=== PATIENT | female | born 1975 ===

== ENCOUNTER 2016-05-09 09:54 | Inpatient (IN) | payer OTHER ==
[2016-03-05 21:11] VITALS: BMI 24.7
--- NOTE | 2016-05-09 11:04 | CP.PCM.HP ---
History of Present Illness - History of Present Illness History of Present Illness: 40yo female with h/o menorrhagia which had been unresponsive to endometrial ablation and also associated with a chronic pelvic pain reports here today for a scheduled ANEL with bilateral salpingectomy and all nenesssary procedures. The risks and benefits of the procedure has been discussed. Her questions has been answered. She has obtained a consent. Present on Admission - Present on Admission Any Indicators Present on Admission: No Review of Systems - EENT Nose/Mouth/Throat: As Per HPI - Breasts Breasts: As Per HPI - Cardiovascular Cardiovascular: As Per HPI - Reproductive: Female Reproductive:Female: Dyspareunia Past Patient History - Infectious Disease Hx of Infectious Diseases: None - Past Medical History & Family History Past Medical History?: Yes - Past Social History Smoking Status: Never Smoked - CARDIAC Hx Cardiac Disorders: Yes Hx Angina: Yes - PULMONARY Hx Respiratory Disorders: No - NEUROLOGICAL Hx Neurological Disorder: No - HEENT Hx HEENT Problems: Yes Hx Epistaxis: Yes Hx Sinusitis: Yes - RENAL Hx Chronic Kidney Disease: No - ENDOCRINE/METABOLIC Hx Endocrine Disorders: No - HEMATOLOGICAL/ONCOLOGICAL Hx Blood Disorders: Yes Hx Anemia: Yes - INTEGUMENTARY Hx Dermatological Problems: No - MUSCULOSKELETAL/RHEUMATOLOGICAL Hx Musculoskeletal Disorders: Yes Hx Herniated Disk: Yes (LUMBAR) Other/Comment: SCOLIOSIS - GASTROINTESTINAL Hx Gastrointestinal Disorders: Yes Hx Gastritis: Yes Hx Gastroesophageal Reflux: Yes - GENITOURINARY/GYNECOLOGICAL Hx Genitourinary Disorders: No Hx Reproductive Disorders: Yes (FIBROID UTERUS) Other/Comment: EXCESSIVE MENSTRUATION : 2 Para: 2 Termination of : 0 - PSYCHIATRIC Hx Psychophysiologic Disorder: No Hx Substance Use: No - SURGICAL HISTORY Hx Surgeries: Yes Hx Cardiac Catheterization: Yes (2 YEARS AGO) Hx Dilation and Curettage: Yes (& Hysteroscopy ) Hx Orthopedic Surgery: Yes (Left knee tendon) Hx Tubal Ligation: Yes Other/Comment: Laparoscopy, Vaginal Myomectomy, nasal polyp surgery last thursday - ANESTHESIA Hx Anesthesia: Yes Hx Anesthesia Reactions: No Hx Malignant Hyperthermia: No Meds Allergies/Adverse Reactions: Allergies Allergy/AdvReac Type Severity Reaction Status Date / Time clarithromycin Allergy Severe SHORTNESS Verified 05/09/16 10:14 OF BREATH iodine Allergy Severe SHORTNESS Verified 05/09/16 10:14 OF BREATH morphine Allergy Severe SHORTNESS Verified 05/09/16 10:14 OF BREATH oxycodone HCl [From Percocet] Allergy Severe RASH Verified 05/09/16 10:14 Penicillins Allergy Severe RASH Verified 05/09/16 10:14 all antibiotics Allergy SHORTNESS Uncoded 05/09/16 10:14 OF BREATH Results - Vital Signs Recent Vital Signs: Last Vital Signs Temp 97.6 F 05/09/16 10:17 Pulse 65 05/09/16 10:17 Resp 20 05/09/16 10:17 BP 129/79 05/09/16 10:17 Pulse Ox 100 05/09/16 10:17 Assessment & Plan - Assessment and Plan (Free Text) Assessment: 40yo female with chronic Pelvic pain Endometriosis For 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 This is because of the severity of symptoms shown, intensity of services needed, and/or the medical risk in this patient being treated as an outpatient. - InPatient: Physician Admission Certification:: vu newby - . Bed Request Type: FAN BLADE TRUER Admitting Physician: Vu Newby
[2016-05-09] MEDS ORDERED: Lactated Ringer's 1,000 ML IV ONE ×2 (12:05→12:45)
[2016-05-09] MEDS ORDERED: Propofol 10 mg/ml Inj (20 ML) ONE (12:19)
[2016-05-09] MEDS ORDERED: Midazolam 2 MG/2 ML VIAL ONE (12:19)
[2016-05-09] MEDS ORDERED: Rocuronium 10 mg/ml (5 ml) ONE (12:19)
[2016-05-09] MEDS ORDERED: Neostigmine Methylsulfate 3mg/3ml Syringe IV ONE (12:19)
[2016-05-09] MEDS ORDERED: Morphine 4 MG/ML VIAL ONE (12:19)
[2016-05-09] MEDS ORDERED: Bupivacaine HCl 0.25% PF (10 ml) Inj ONE (13:20)
[2016-05-09] MEDS ORDERED: BUPIVACAINE 0.125%/0.9% NACL 600 ML IJ ONE (14:00)
[2016-05-09] MEDS ORDERED: Morphine Monoject Barrel PCA 1mg/ml IV PRN (14:07)
[2016-05-09] MEDS ORDERED: DiphenhydrAMINE 50 mg/ml Inj IVP PRN (14:12)
[2016-05-09] MEDS: HYDROmorphone 0.5 mg/0.5 ml ISec IVP PRN ×4 (14:15→16:00)
[2016-05-09] MEDS ORDERED: HYDROmorphone 1 mg/ml ISec ONE ×2 (14:30→15:16)
--- NOTE | 2016-05-09 14:39 | PCM.SURG1 ---
Surgeon's Initial Post Op Note - Surgeon's Notes Surgeon: Dr Newby Clinical Outcomes Manager: Dr Carmona Anesthesia Administered By: Sixto Solorzano Supervised by Dr Borrero Pre-Operative Diagnosis: 41yo female with chronic pelvic pain, irregular menstrual bleeding. Operative Findings: Normal sized anterverted uterus , with normal appearing ovaries bilaterally. There was evdence of tubal ligation on either sidethere were some omental adhesions to the posterior wall of the uterus and to the left adnexa. IV Fluids- 1700mls. EBL- 100mls. Urine output- 200mls of clear urine Post-Operative Diagnosis: Same as preop diagnosis Operation Performed: Total Abdominal Hysterectomy and bilateral Salpingectomy Specimen/Specimens Removed: Uterus with Cervix Estimated Blood Loss: EBL {In ML}: 100 Blood Products Given: N/A Date of Surgery/Procedure: 05/09/16 Time of Surgery/Procedure: 14:42
[2016-05-09] MEDS: Clindamycin 600mg/50ml D5W 50 ML IVPB SCH (21:33)
[2016-05-09] MEDS: Lactated Ringer's 1,000 ML IV SCH (22:30)
[2016-05-10] MEDS: Lactated Ringer's 1,000 ML IV SCH ×3 (01:30→10:18)
[2016-05-10] MEDS: Clindamycin 600mg/50ml D5W 50 ML IVPB SCH ×2 (06:33→12:40)
[2016-05-10 07:20] LABS: HEMATOCRIT 31.1 % (34.0-47.0); MEAN CELL VOLUME 81.9 fL (81.0-99.0); MEAN CORPUSCULAR HEMOGLOBIN 26.5 pg (27.0-31.0); MEAN CORPUSCULAR HGB CONC 32.3 g/dL (33.0-37.0); MEAN PLATELET VOLUME 7.9 fL (7.2-11.7); RED CELL DISTRIBUTION WIDTH 13.5 % (11.5-14.5)
[2016-05-10 07:24] LABS: CHLORIDE 95 mmol/L (98-107); POTASSIUM 4.2 mmol/L (3.6-5.2); SODIUM 134 mmol/L (132-148)
[2016-05-10 07:27] LABS: BLOOD UREA NITROGEN 8 mg/dL (7-17); CARBON DIOXIDE 28 mmol/L (22-30); GFR AFRICAN-AMERICAN > 60
[2016-05-10 07:28] LABS: CALCIUM 8.3 mg/dl (8.6-10.4); GLUCOSE,RANDOM 102 mg/dL (65-105)
[2016-05-10] MEDS ORDERED: Pneumococcal 23-Valent Vaccine IM ONE (10:00)
[2016-05-10] MEDS ORDERED: Influenza Virus Vaccine 45 mcg/0.5 ml Syr IM ONE (10:00)
[2016-05-10] MEDS: Enoxaparin 30 mg Syringe SC SCH (13:47)
--- NOTE | 2016-05-10 22:59 | CP.PCM.PN ---
Subjective - Date & Time of Evaluation Date of Evaluation: 05/10/16 Time of Evaluation: 10:30 - Subjective Subjective: 41yo female s/p ANEL and bilateral salpingectomy for chronic pelvic pain, POD #1 , ambulating, has not passed gas, voiding freely Objective - Vital Signs/Intake and Output Vital Signs (last 24 hours): Temp Pulse Resp BP Pulse Ox 98.5 F 89 20 96/62 L 98 05/10/16 16:18 05/10/16 16:18 05/10/16 16:18 05/10/16 16:18 05/10/16 16:18 - Medications Medications: Current Medications Diphenhydramine HCl (Benadryl) 25 mg IVP Q6 PRN PRN Reason: Itching / Pruritus Enoxaparin Sodium (Lovenox) 30 mg SC DAILY [facility] Last Admin: 05/10/16 13:47 Dose: 30 mg Famotidine (Pepcid) 20 mg IVP Q12 [facility] Last Admin: 05/10/16 21:47 Dose: 20 mg Lactated Ringer's (Lactated Ringer's) 1,000 mls @ 125 mls/hr IV .Q8H [facility] Last Admin: 05/10/16 10:18 Dose: 125 mls/hr Ibuprofen (Motrin Tab) 800 mg PO Q6H [facility] Last Admin: 05/10/16 17:38 Dose: 800 mg Influenza Virus Vaccine (Afluria) 45 mcg IM .ONCE ONE Stop: 05/11/16 10:01 Pneumococcal Polyvalent Vaccine (Pneumovax 23 Vaccine) 0.5 ml IM .ONCE ONE Stop: 05/11/16 09:46 - Labs Labs: 05/10/16 07:08 05/10/16 07:08 - Constitutional Appears: Well - Eye Exam Eye Exam: EOMI - Respiratory Exam Respiratory Exam: Clear to Ausculation Bilateral, NORMAL BREATHING PATTERN - Cardiovascular Exam Cardiovascular Exam: REGULAR RHYTHM, RRR - GI/Abdominal Exam GI & Abdominal Exam: Normal Bowel Sounds Additional comments: Incision: Clean and dry - Exam External exam: NORMAL EXTERNAL EXAM - Extremities Exam Extremities Exam: Normal Inspection - Neurological Exam Neurological Exam: Alert Assessment and Plan - Assessment and Plan (Free Text) Assessment: S/P Total Abdominal Hysterectomy Plan: Advance to regular diet D/C folleys Catheter Ambulation, Oral pain meds
[2016-05-11 08:32] VITALS: BP 96/60; PULSE 82; RESP 16; TEMP 98.2; O2SAT 95
[2016-05-11] MEDS: Enoxaparin 30 mg Syringe SC SCH (09:42)
[2016-05-11] MEDS ORDERED: Pneumococcal 23-Valent Vaccine IM ONE (09:45)
[2016-05-11] MEDS ORDERED: Influenza Virus Vaccine 45 mcg/0.5 ml Syr IM ONE (10:00)
--- NOTE | 2016-05-11 10:19 | CP.PCM.DIS ---
Provider - Provider Date of Admission: 05/09/16 14:17 Attending physician: Vu Newby Time Spent in preparation of Discharge (in minutes): 30 Diagnosis - Discharge Diagnosis (1) S/P ANEL (total abdominal hysterectomy) Status: Acute Hospital Course - Lab Results Lab Results: Most Recent Lab Values WBC 9.0 K/uL (4.8-10.8) 05/10/16 07:08 RBC 3.79 Mil/uL (3.80-5.20) L 05/10/16 07:08 Hgb 10.0 g/dL (11.0-16.0) L D 05/10/16 07:08 Hct 31.1 % (34.0-47.0) L 05/10/16 07:08 MCV 81.9 fL (81.0-99.0) 05/10/16 07:08 MCH 26.5 pg (27.0-31.0) L 05/10/16 07:08 MCHC 32.3 g/dL (33.0-37.0) L 05/10/16 07:08 RDW 13.5 % (11.5-14.5) 05/10/16 07:08 Plt Count 309 K/uL (130-400) 05/10/16 07:08 MPV 7.9 fL (7.2-11.7) 05/10/16 07:08 Sodium 134 mmol/L (132-148) 05/10/16 07:08 Potassium 4.2 mmol/L (3.6-5.2) 05/10/16 07:08 Chloride 95 mmol/L (98-107) L 05/10/16 07:08 Carbon Dioxide 28 mmol/L (22-30) 05/10/16 07:08 Anion Gap 15 (10-20) 05/10/16 07:08 BUN 8 mg/dL (7-17) 05/10/16 07:08 Creatinine 0.6 MG/DL (0.7-1.2) L 05/10/16 07:08 Est GFR ( Amer) > 60 05/10/16 07:08 Est GFR (Non-Af Amer) > 60 05/10/16 07:08 Random Glucose 102 mg/dL (65-105) 05/10/16 07:08 Calcium 8.3 mg/dl (8.6-10.4) L 05/10/16 07:08 Blood Type A POSITIVE 05/09/16 11:14 Antibody Screen Negative 05/09/16 11:14 - Hospital Course Hospital Course: Pt is 41yo female s/p ANEL for chronic pelvic pain and irregular bleeding., POD # 2, Clinically stable. Pt would be discharged home today with regular diet and activity. Pt to f/u with Dr Newby in 2 weeks. Pt would be sent home with Motrin for pain control. All other complaints are to be sent to the nearest ER or to Dr Newby's office. Discharge Exam - Head Exam Head Exam: NORMAL INSPECTION - Eye Exam Eye Exam: EOMI Pupil Exam: PERRL - Respiratory Exam Respiratory Exam: Clear to PA & Lateral, NORMAL BREATHING PATTERN - Cardiovascular Exam Cardiovascular Exam: REGULAR RHYTHM - GI/Abdominal Exam GI & Abdominal Exam: Normal Bowel Sounds, Unremarkable Additional comments: Incision: Clean and dry - Exam External exam: NORMAL EXTERNAL EXAM - Neurological Exam Neurological exam: Alert, Oriented x3 Discharge Plan - Follow Up Plan Condition: GOOD Disposition: HOME/ ROUTINE Patient education suggested?: No
--- NOTE | 2016-05-12 08:22 | OP ---
PROCEDURE DATE: 05/09/2016 PREOPERATIVE DIAGNOSES: A 41-year-old female with chronic pelvic pain and irregular bleeding, reques ting for total abdominal hysterectomy. POSTOPERATIVE DIAGNOSIS: A 41-year-old female with chronic pelvic pain and irregular bleeding, reque sting for total abdominal hysterectomy. PROCEDURE DONE: Total abdominal hysterectomy and bilateral salpingectomy. SURGEON: Dr. Newby SCREEN REPAIRER CRUSHER: Dr. Carmona. Assistance to this procedure was needed for exposure of tissues and help in th e conduct of the surgery. The registered sales assistant remained with the procedure throughout its entire length. TYPE OF ANESTHESIA: General endotracheal. ANESTHESIA ADMINISTERED BY: STRUCTURER , supervised by Dr. Borrero. COMPLICATIONS: There were none. FINDINGS: Normal sized anteverted uterus with some bluish colored changes on the posterior wall of t he uterus resembling endometriotic lesions. Both ovaries and fallopian tubes, which had evidence of tubal ligation on either side, appeared normal. INTRAVENOUS FLUID INTAKE: 1700 mL. ESTIMATED BLOOD LOSS: 100 mL. URINE OUTPUT: 200 mL of clear urine. DESCRIPTION OF PROCEDURE: The risks, benefits, indications, and alternatives to the procedure were r eviewed with the patient and informed consent was obtained. The patient was taken to the operating r oom with IV running and Chritsensen catheter in place. The patient was placed in the supine position, give n general anesthesia, prepped and draped in the usual sterile fashion. A Pfannenstiel skin incision was made approximately 2 cm above the pubic symphysis and extended sharply to the rectus fascia using the scalpel. The fascia was then incised bilaterally with a curved Carpio scissors and the muscles of the anterior abdominal wall were in the midline by sharp and blunt dissection. The perito neum was grasped between 2 pickups, elevated and entered sharply with Metzenbaum scissors. The pelvi s was examined with the findings noted above. An O'Matt-O'Quinn retractor was placed into the i ncision and the bowel was packed away with moist laparotomy sponges. Two clamps were placed on the cornua and used for retraction. The round ligaments on both sides were clamped, cauterized and transected using the LigaSure device. Anterior leaf of the broad ligament was incised along the blad nellie reflection to the midline from both sides. The bladder was gently dissected off the lower uterin e segment and the cervix with a sponge stick. The ovarian ligament with the fallopian tube attachmen t to the cornua on both sides were clamped, cauterized and transected using the LigaSure device. Hem ostasis was visualized. The uterine arteries were skeletonized bilaterally, clamped with Theresa clam ps, transected, and suture ligated with #0 Vicryl. Again, hemostasis was assured. The uterosacral l igaments were clamped on both sides, transected, and suture ligated in a similar fashion. The cervix and the uterus was amputated with Soo scissors. The vaginal cuff angles were closed with figu re-of-eight stitches of #0 Vicryl and were transfixed to the ipsilateral cardinal and uterosacral lig aments. The remainder of the vaginal cuff was closed with a series of interrupted #0 Vicryl figure-o f-eight sutures. Hemostasis was assured. The remnant of the fallopian tube on the right side was el evated with Babcocks forceps and the broad ligament inferior to this portion was grasped with the Lig aSure device, cauterized and transected. The excised right fallopian tube was sent for histopatholog y. The same procedure was performed on the left side and also sent for pathology. The pelvis was th en irrigated copiously with warmed normal saline. All laparotomy sponges and instruments were remove d from the abdomen. The attention was turned to the anterior abdominal wall, which was closed in lay ers with 2-0 Vicryl for the peritoneum and the rectus muscles. The rectus fascia was reapproximated using Vicryl #0. The subcutaneous tissue was brought together with #2-0 plain catgut. The skin was closed in a subcuticular fashion using #4-0 Vicryl. All counts of instruments, laparotomy pads, and needles used were correct x 3 and the patient was sent to the recovery room awake and in stable condi tion. Vu Newby MD cc: [id number] TT: 05/12/2016 07:59:52 en
== END 2016-05-11 11:25 | disposition home or self-care (01) | DRG 743 ==
LOC: C.SDS 09:54 → C.6T 14:17
PROVIDERS: ADMIT Obstetrics & Gynecology; ATTEND Obstetrics & Gynecology
PROC: 0UTC0ZZ Resection of Cervix, Open Approach (ICD-10-PCS; 2016-05-09)
PROC: 0UT70ZZ Resection of Bilateral Fallopian Tubes, Open Approach (ICD-10-PCS; 2016-05-09)
PROC: 0UT90ZZ Resection of Uterus, Open Approach (ICD-10-PCS; principal; 2016-05-09 11:00)
DX: N80.0 Endometriosis of uterus (principal); N92.0 Excessive and frequent menstruation with regular cycle; Z98.51 Tubal ligation status

== ENCOUNTER 2016-05-21 17:02 | Observation (INO) | payer OTHER ==
[2016-05-21 17:02] VITALS: BMI 24.7
[2016-05-21 18:29] LABS: BASO % 0.3 % (0.0-2.0); EOS # 0.1 K/uL (0.0-0.7); EOS % 0.8 % (0.0-4.0); HEMATOCRIT 32.7 % (34.0-47.0); LYMPH # 1.7 K/uL (1.0-4.3); LYMPH % 13.7 % (20.0-40.0); MEAN CELL VOLUME 81.4 fL (81.0-99.0); MEAN CORPUSCULAR HEMOGLOBIN 26.5 pg (27.0-31.0); MEAN CORPUSCULAR HGB CONC 32.6 g/dL (33.0-37.0); MONO # 0.5 K/uL (0.0-0.8); MONO % 3.8 % (0.0-10.0); NRBC % 0.1 % (0.0-2.0); RED CELL DISTRIBUTION WIDTH 13.9 % (11.5-14.5); WHITE BLOOD COUNT 12.2 K/uL (4.8-10.8)
[2016-05-21 18:41] LABS: CHLORIDE 97 mmol/L (98-107)
[2016-05-21 18:42] LABS: POTASSIUM 5.1 mmol/L (3.6-5.2); RBC URINE 11 /hpf (0-3); SODIUM 138 mmol/L (132-148); URINE BACTERIA MANY (<OCC); URINE BILIRUBIN NEGATIVE (NEGATIVE); URINE BLOOD 2+ (NEGATIVE); URINE COLOR Yellow (YELLOW); URINE GLUCOSE (UA) NORMAL (Normal); URINE KETONE NEGATIVE (NEGATIVE); URINE LEUKOCYTE ESTERASE NEG Leu/uL (Negative); URINE PROTEIN NEGATIVE (NEGATIVE); URINE UROBILINOGEN NORMAL mg/dL (0.2-1.0); WBC URINE 6 /hpf (0-5)
[2016-05-21 18:44] LABS: BILIRUBIN,TOTAL 1.4 mg/dL (0.2-1.3); CARBON DIOXIDE 25 mmol/L (22-30); GFR AFRICAN-AMERICAN > 60
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
[2016-05-21 18:45] LABS: ALB/GLOB RATIO 1.2 (1.0-2.1); ALKALINE PHOSPHATASE 85 U/L (38-126); ALT/SGPT 13 U/L (9-52); AST/SGOT 49 U/L (14-36); BLOOD UREA NITROGEN 9 mg/dL (7-17); GLUCOSE,RANDOM 86 mg/dL (65-105); TOTAL PROTEIN 8.5 g/dL (6.3-8.3)
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
[2016-05-22 06:28] LABS: ADD MANUAL DIFF? NO
[2016-05-22] MEDS ORDERED: Acetaminophen-Codeine 300/30 mg Tab PO PRN (07:09)
[2016-05-22 07:20] LABS: INR 1.3
[2016-05-22 07:22] LABS: BASO % 0.5 % (0.0-2.0); EOS # 0.3 K/uL (0.0-0.7); EOS % 3.7 % (0.0-4.0); HEMATOCRIT 30.5 % (34.0-47.0); LYMPH # 1.8 K/uL (1.0-4.3); LYMPH % 24.7 % (20.0-40.0); MEAN CELL VOLUME 81.6 fL (81.0-99.0); MEAN CORPUSCULAR HEMOGLOBIN 26.7 pg (27.0-31.0); MEAN CORPUSCULAR HGB CONC 32.8 g/dL (33.0-37.0); MEAN PLATELET VOLUME 6.9 fL (7.2-11.7); MONO # 0.5 K/uL (0.0-0.8); MONO % 6.3 % (0.0-10.0); PLATELET COUNT 442 K/uL (130-400); RED CELL DISTRIBUTION WIDTH 13.9 % (11.5-14.5); WHITE BLOOD COUNT 7.1 K/uL (4.8-10.8)
[2016-05-22 23:45] VITALS: RESP 20
[2016-05-23 07:59] LABS: BASO % 0.4 % (0.0-2.0); EOS # 0.3 K/uL (0.0-0.7); EOS % 4.2 % (0.0-4.0); HEMATOCRIT 30.4 % (34.0-47.0); LYMPH # 1.8 K/uL (1.0-4.3); LYMPH % 24.3 % (20.0-40.0); MEAN CELL VOLUME 82.3 fL (81.0-99.0); MEAN CORPUSCULAR HEMOGLOBIN 26.8 pg (27.0-31.0); MEAN CORPUSCULAR HGB CONC 32.5 g/dL (33.0-37.0); MEAN PLATELET VOLUME 6.9 fL (7.2-11.7); MONO # 0.5 K/uL (0.0-0.8); MONO % 6.8 % (0.0-10.0); RED CELL DISTRIBUTION WIDTH 14.2 % (11.5-14.5); WHITE BLOOD COUNT 7.4 K/uL (4.8-10.8)
[2016-05-23 08:20] LABS: BLOOD UREA NITROGEN 16 mg/dL (7-17); CALCIUM 8.6 mg/dl (8.6-10.4); CARBON DIOXIDE 28 mmol/L (22-30); CHLORIDE 99 mmol/L (98-107); GFR AFRICAN-AMERICAN > 60; GLUCOSE,RANDOM 84 mg/dL (65-105); POTASSIUM 4.3 mmol/L (3.6-5.2); SODIUM 138 mmol/L (132-148)
[2016-05-23 08:47] VITALS: PULSE 75; TEMP 97.8; O2SAT 96
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
[2016-05-23] MEDS ORDERED: Pneumococcal 23-Valent Vaccine IM ONE (10:00)
[2016-05-23 10:03] VITALS: BP 102/65
== END 2016-05-23 12:50 | disposition home or self-care (01) ==
LOC: C.ER 17:02 → C.3T 21:23
PROVIDERS: ADMIT Specialist; ATTEND Specialist
DX: S30.1XXA Contusion of abdominal wall, initial encounter (principal); V89.2XXA Person injured in unspecified motor-vehicle accident, traffic, initial encounter; Y92.9 Unspecified place or not applicable; Z90.710 Acquired absence of both cervix and uterus; Z98.51 Tubal ligation status; Z23 Encounter for immunization
CPT/HCPCS: 36415; 74176; 80048; 80053; 81001; 83690; 85025; 85610; 85730; 90732; 96374; 99283; G0009; G0378; J1885

== ENCOUNTER 2016-05-28 16:56 | Emergency (ER) | payer OTHER ==
[2016-05-28 16:56] VITALS: BMI 24.7
[2016-05-28 17:30] VITALS: RESP 18; O2SAT 100
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
[2016-05-28 18:39] LABS: BASO # 0.1 K/uL (0.0-0.2); BASO % 1.1 % (0.0-2.0); EOS # 0.2 K/uL (0.0-0.7); EOS % 3.2 % (0.0-4.0); HEMATOCRIT 35.1 % (34.0-47.0); LYMPH # 1.8 K/uL (1.0-4.3); LYMPH % 25.3 % (20.0-40.0); MEAN CELL VOLUME 81.9 fL (81.0-99.0); MEAN CORPUSCULAR HEMOGLOBIN 26.3 pg (27.0-31.0); MEAN CORPUSCULAR HGB CONC 32.1 g/dL (33.0-37.0); MEAN PLATELET VOLUME 7.3 fL (7.2-11.7); MONO # 0.5 K/uL (0.0-0.8); MONO % 6.6 % (0.0-10.0); RED CELL DISTRIBUTION WIDTH 14.4 % (11.5-14.5); WHITE BLOOD COUNT 7.2 K/uL (4.8-10.8)
[2016-05-28 18:45] LABS: CHLORIDE 99 mmol/L (98-107); SODIUM 136 mmol/L (132-148)
[2016-05-28 18:46] LABS: POTASSIUM 5.7 mmol/L (3.6-5.2)
[2016-05-28 18:48] LABS: ALB/GLOB RATIO 1.2 (1.0-2.1); ALKALINE PHOSPHATASE 87 U/L (38-126); AST/SGOT 59 U/L (14-36); BILIRUBIN,TOTAL 1.9 mg/dL (0.2-1.3); BLOOD UREA NITROGEN 10 mg/dL (7-17); CARBON DIOXIDE 25 mmol/L (22-30); GFR AFRICAN-AMERICAN > 60; GLUCOSE,RANDOM 82 mg/dL (65-105); TOTAL PROTEIN 8.8 g/dL (6.3-8.3)
[2016-05-28 18:49] LABS: ALT/SGPT < 6 U/L (9-52); CALCIUM 9.1 mg/dl (8.6-10.4)
[2016-05-28 18:50] LABS: RBC URINE 24 /hpf (0-3); URINE BACTERIA FEW (<OCC); URINE BILIRUBIN NEGATIVE (NEGATIVE); URINE BLOOD 2+ (NEGATIVE); URINE COLOR Yellow (YELLOW); URINE GLUCOSE (UA) NORMAL (Normal); URINE KETONE NEGATIVE (NEGATIVE); URINE LEUKOCYTE ESTERASE NEG Leu/uL (Negative); URINE PROTEIN NEGATIVE (NEGATIVE); URINE UROBILINOGEN NORMAL mg/dL (0.2-1.0); WBC URINE 3 /hpf (0-5)
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
[2016-05-28 23:21] VITALS: BP 107/68; PULSE 71; TEMP 98
== END 2016-05-28 23:37 | disposition home or self-care (01) ==
LOC: C.ER 16:56
DX: S30.1XXD Contusion of abdominal wall, subsequent encounter (principal); V89.2XXD Person injured in unspecified motor-vehicle accident, traffic, subsequent encounter; R39.198 Other difficulties with micturition

== ENCOUNTER 2016-06-25 09:20 | Emergency (ER) | payer OTHER ==
[2016-06-25 09:32] VITALS: RESP 18; BMI 23.3
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
[2016-06-25 10:51] LABS: BASO # 0.1 K/uL (0.0-0.2); BASO % 1.1 % (0.0-2.0); EOS # 0.3 K/uL (0.0-0.7); EOS % 4.6 % (0.0-4.0); HEMATOCRIT 37.5 % (34.0-47.0); LYMPH # 1.9 K/uL (1.0-4.3); LYMPH % 26.4 % (20.0-40.0); MEAN CELL VOLUME 82.5 fL (81.0-99.0); MEAN CORPUSCULAR HEMOGLOBIN 26.2 pg (27.0-31.0); MEAN CORPUSCULAR HGB CONC 31.7 g/dL (33.0-37.0); MEAN PLATELET VOLUME 7.6 fL (7.2-11.7); MONO # 0.5 K/uL (0.0-0.8); MONO % 6.6 % (0.0-10.0); NRBC % 0.1 % (0.0-2.0); RED CELL DISTRIBUTION WIDTH 14.3 % (11.5-14.5)
[2016-06-25 11:02] LABS: CHLORIDE 98 mmol/L (98-107)
[2016-06-25 11:03] LABS: POTASSIUM 3.8 mmol/L (3.6-5.2); SODIUM 138 mmol/L (132-148)
[2016-06-25 11:05] LABS: ALB/GLOB RATIO 1.4 (1.0-2.1); ALKALINE PHOSPHATASE 92 U/L (38-126); AST/SGOT 21 U/L (14-36); BILIRUBIN,TOTAL 0.2 mg/dL (0.2-1.3); CARBON DIOXIDE 31 mmol/L (22-30); GFR AFRICAN-AMERICAN > 60; RBC URINE 17 /hpf (0-3); TOTAL PROTEIN 8.8 g/dL (6.3-8.3); URINE BACTERIA OCC (<OCC); URINE BILIRUBIN NEGATIVE (NEGATIVE); URINE BLOOD 3+ (NEGATIVE); URINE COLOR Yellow (YELLOW); URINE GLUCOSE (UA) NORMAL (Normal); URINE KETONE NEGATIVE (NEGATIVE); URINE LEUKOCYTE ESTERASE 3+ Leu/uL (Negative); URINE PROTEIN NEGATIVE (NEGATIVE); URINE UROBILINOGEN NORMAL mg/dL (0.2-1.0); WBC URINE 479 /hpf (0-5)
[2016-06-25 11:06] LABS: ALT/SGPT 23 U/L (9-52); BLOOD UREA NITROGEN 9 mg/dL (7-17); CALCIUM 9.7 mg/dl (8.6-10.4); GLUCOSE,RANDOM 93 mg/dL (65-105)
--- NOTE | 2016-06-25 11:52 | CT ---
PROCEDURE: CT Abdomen and Pelvis without intravenous contrast HISTORY: lower abd pain s/p hysterectomy ?col. on last CT COMPARISON: Comparison is made to the previous study dated 05/28/2016 TECHNIQUE: Axial and reformatted coronal and sagittal CT images of the abdomen and pelvis were obtained without IV or oral contrast administration.. Contrast Dose: 0 Radiation dose: Total exam DLP = 320.2 mGy-cm. This CT exam was performed using one or more of the following dose reduction techniques: Automated exposure control, adjustment of the mA and/or kV according to patient size, and/or use of iterative reconstruction technique. FINDINGS: LOWER THORAX: Unremarkable. LIVER: Unremarkable. No gross lesion or ductal dilatation. GALLBLADDER AND BILE DUCTS: Unremarkable. PANCREAS: Unremarkable. No gross lesion or ductal dilatation. SPLEEN: Unremarkable. ADRENALS: Unremarkable. No mass. KIDNEYS AND URETERS: Unremarkable. No hydronephrosis. No solid mass. VASCULATURE: Unremarkable. No aortic aneurysm. BOWEL: Unremarkable. No obstruction. No gross mural thickening. APPENDIX: No evidence of appendicitis. PERITONEUM: Unremarkable. No free fluid. No free air. LYMPH NODES: Unremarkable. No enlarged lymph nodes. BLADDER: Unremarkable. REPRODUCTIVE: Status post hysterectomy. Interval complete resolving of the previously seen fluid collection at the pelvis since the previous exam. There is soft tissue structure at the left pelvis may represent the left adnexa. No evidence of free fluid or fluid collection in the pelvis. BONES: No acute fracture. OTHER FINDINGS: Postsurgical changes at the anterior lower abdominal wall consistent with the patient's recent hysterectomy. IMPRESSION: Interval complete resolving of the previously seen fluid collection in the pelvis since the previous exam. No evidence of free fluid or fluid collection in the pelvis. Patient status post partial hysterectomy. The left adnexa is prominent in size. If clinically warranted further assessment by ultrasound may be obtained. No evidence of acute pathology in the upper abdomen.
[2016-06-25 12:26] VITALS: BP 122/80; PULSE 66; TEMP 98.2
[2016-06-25 12:58] VITALS: O2SAT 100
== END 2016-06-25 12:19 | disposition home or self-care (01) ==
LOC: C.ER 09:20
DX: N30.90 Cystitis, unspecified without hematuria (principal); B95.1 Streptococcus, group B, as the cause of diseases classified elsewhere

== ENCOUNTER 2016-09-01 09:23 | Emergency (ER) | payer OTHER ==
[2016-09-01 09:23] VITALS: BMI 23.3
[2016-09-01 09:44] VITALS: O2SAT 98
--- NOTE | 2016-09-01 11:31 | C.PDOC ---
History Of Present Illness 41 yr old female presents to the ER for evaluation of right index finger pain, radiating down to the right hand, wrist and forearm gradually developing for the past 2-3 days. Patient states the pain is constant and aching, worse with movement. Patient denies trauma or injury, fever, chills, skin changes, weakness to Right hand, denies sensory or vascular deficits to Right hand. Ambulate to Ed for evaluation, not n any apparent distress. Time Seen by Provider: 09/01/16 11:18 Chief Complaint (Nursing): Upper Extremity Problem/Injury History Per: Patient History/Exam Limitations: no limitations Onset/Duration Of Symptoms: Gradual Current Symptoms Are (Timing): Still Present Past Medical History Reviewed: Historical Data, Nursing Documentation, Vital Signs Vital Signs: Last Vital Signs Temp 97.8 F 09/01/16 11:45 Pulse 66 09/01/16 11:45 Resp 20 09/01/16 11:45 BP 128/84 09/01/16 11:45 Pulse Ox 98 09/01/16 14:05 - Medical History PMH: Anemia, Colonic Polyps, Gastritis Surgical History: Endoscopy - [facility] Procedures D & C NEC (11/18/13) DESTRUCT PERITONEAL TISS (03/09/14) INTRANAS LES DESTRUCTION (11/03/14) LAPAROSCOP LYSIS-ADHES OVA,FALLOP TUBE (03/09/14) RESECTION OF BILATERAL FALLOPIAN TUBES, OPEN APPROACH (05/09/16) RESECTION OF CERVIX, OPEN APPROACH (05/09/16) RESECTION OF UTERUS, OPEN APPROACH (05/09/16) Family History: States: No Known Family Hx - Social History Hx Tobacco Use: No Hx Alcohol Use: No Hx Substance Use: No - Immunization History Hx Tetanus Toxoid Vaccination: No Hx Influenza Vaccination: No Hx Pneumococcal Vaccination: No Review Of Systems Except As Marked, All Systems Reviewed And Found Negative. Constitutional: Negative for: Fever, Chills Musculoskeletal: Positive for: Other ((+) Right index finger pain, radiating to right hand, wrist and forearm. ). Negative for: Shoulder Pain Skin: Negative for: Rash, Lesions Neurological: Negative for: Weakness, Numbness Physical Exam - Physical Exam Appears: Well, Non-toxic, No Acute Distress Skin: Normal Color, Warm, No Rash, No Ecchymosis Extremity: Normal ROM (Right hand), Tenderness (along radial aspect Right index finger extends down to radial palmar aspect right hand and wirst. FAROM, no nskin changes, no neurovascular deficits. No skin changes.), Capillary Refill ( less than 2sec to Right hand), No Deformity, No Swelling Neurological/Psych: Oriented x3, Normal Speech, Normal Motor, Normal Sensation, Normal Reflexes ED Course And Treatment O2 Sat by Pulse Oximetry: 98 (RA ) Pulse Ox Interpretation: Normal Progress Note: Pt was offered imaging-refused, reports no known injury. On re- eavl, pt is afebrile, hemodynamicaly stable. Non-toxic. RUE: exam c/w Right index finger pain along radial nerve extend up to wrist and forearm, likely radial neuropathy. FAROM of RUE, no neurovascular deficits, no deformity. Pt advised on course of ds and tx option. Pt has allergy to multiple medication including NSAID, narcotis. Pt was given steroid. Volar splint applied to Right wrist, Aluminium finger splint applied to Right index finger. Sling placed to Right arm. ref. to f/u with PMD and hand specialist in 2-3 days for re-eavl. return if any new changes. Medical Decision Making Medical Decision Making: PLAN: * Prednisone PO Disposition Counseled Patient/Family Regarding: Diagnosis, Need For Followup, Rx Given - Disposition Referrals: Qi De Los Santos MD [Staff Provider] - Disposition: HOME/ ROUTINE Disposition Time: 11:31 Condition: STABLE Additional Instructions: Splint Complete rest to Right hand for 1-2 weeks take medication as prescribed follow up with hand specialist in 2-3 days for re-evaluation. return to ED if any worsening or new changes. Prescriptions: Prednisone [Deltasone] 40 mg PO DAILY #6 tablet Instructions: Peripheral Neuropathy (ED) - Clinical Impression Clinical Impression: Radial neuropathy - PA / SHEARER HELPER / Resident Statement MD/DO has reviewed & agrees with the documentation as recorded. - Scribe Statement The provider has reviewed the documentation as recorded by the Scribe Patricia Tejeda All medical record entries made by the Scribe were at my direction and personally dictated by me. I have reviewed the chart and agree that the record accurately reflects my personal performance of the history, physical exam, medical decision making, and the department course for this patient. I have also personally directed, reviewed, and agree with the discharge instructions and disposition.
[2016-09-01 12:35] VITALS: BP 128/84; PULSE 66; RESP 20; TEMP 97.8
== END 2016-09-01 11:50 | disposition home or self-care (01) ==
LOC: C.ER 09:23
DX: G62.9 Polyneuropathy, unspecified (principal)

== ENCOUNTER 2016-10-05 15:28 | Emergency (ER) | payer OTHER ==
[2016-10-05 15:28] VITALS: BMI 23.3
[2016-10-05 15:39] VITALS: RESP 18; O2SAT 100
--- NOTE | 2016-10-05 16:08 | RAD ---
HISTORY: Right upper back pain COMPARISON: Chest x-ray performed 07/11/15 TECHNIQUE: Chest PA and lateral FINDINGS: Examination limited by habitus. LUNGS: No focal consolidation. Please note that chest x-ray has limited sensitivity for the detection of pulmonary masses. PLEURA: No significant pleural effusion identified. No definite pneumothorax . CARDIOVASCULAR: The cardiomediastinal silhouette appears within normal limits of size. OSSEOUS STRUCTURES: No acute osseous abnormality identified. VISUALIZED UPPER ABDOMEN: Unremarkable. OTHER FINDINGS: None. IMPRESSION: No focal consolidation, significant pleural effusion, or definite pneumothorax identified.
[2016-10-05 16:18] LABS: BASO # 0.1 K/uL (0.0-0.2); BASO % 1.2 % (0.0-2.0); EOS # 0.2 K/uL (0.0-0.7); EOS % 2.3 % (0.0-4.0); HEMATOCRIT 37.2 % (34.0-47.0); LYMPH # 2.2 K/uL (1.0-4.3); LYMPH % 28.2 % (20.0-40.0); MEAN CORPUSCULAR HEMOGLOBIN 26.9 pg (27.0-31.0); MEAN CORPUSCULAR HGB CONC 33.2 g/dL (33.0-37.0); MEAN PLATELET VOLUME 7.4 fL (7.2-11.7); MONO # 0.5 K/uL (0.0-0.8); MONO % 6.9 % (0.0-10.0); RED CELL DISTRIBUTION WIDTH 14.6 % (11.5-14.5); WHITE BLOOD COUNT 7.6 K/uL (4.8-10.8)
[2016-10-05 16:43] LABS: RBC URINE 15 /hpf (0-3); RENAL EPITHELIAL < 1 /hpf (0-3); URINE BACTERIA RARE (<OCC); URINE BILIRUBIN NEGATIVE (NEGATIVE); URINE BLOOD 2+ (NEGATIVE); URINE COLOR Yellow (YELLOW); URINE GLUCOSE (UA) NORMAL (Normal); URINE KETONE NEGATIVE (NEGATIVE); URINE LEUKOCYTE ESTERASE 3+ Leu/uL (Negative); URINE PROTEIN NEGATIVE (NEGATIVE); URINE UROBILINOGEN NORMAL mg/dL (0.2-1.0); WBC URINE 111 /hpf (0-5)
[2016-10-05 16:47] LABS: CHLORIDE 100 mmol/L (98-107); POTASSIUM 4.3 mmol/L (3.6-5.2); SODIUM 140 mmol/L (132-148)
[2016-10-05 16:49] LABS: AST/SGOT 33 U/L (14-36); BILIRUBIN,TOTAL 0.6 mg/dL (0.2-1.3); CARBON DIOXIDE 29 mmol/L (22-30); GFR AFRICAN-AMERICAN > 60; TOTAL PROTEIN 8.2 g/dL (6.3-8.3)
[2016-10-05 16:50] LABS: ALKALINE PHOSPHATASE 102 U/L (38-126); ALT/SGPT 37 U/L (9-52); BLOOD UREA NITROGEN 14 mg/dL (7-17); CALCIUM 9.8 mg/dl (8.6-10.4); GLUCOSE,RANDOM 90 mg/dL (65-105)
[2016-10-05 17:24] LABS: INR 1.1; PARTIAL THROMBOPLASTIN TIME 30 SECONDS (21-34)
--- NOTE | 2016-10-05 17:52 | C.PDOC ---
History Of Present Illness Pt c/o right upper back pain. Denies trauma. Time Seen by Provider: 10/05/16 15:47 Chief Complaint (Nursing): Back Pain History Per: Patient, Family Onset/Duration Of Symptoms: Days (2) Current Symptoms Are (Timing): Still Present Quality Of Discomfort: "Pain" Severity: Moderate Associated Symptoms: None Exacerbating Factor(s): Turning, Movement Additional History Per: Prior Records Past Medical History Reviewed: Historical Data, Nursing Documentation, Vital Signs Vital Signs: Last Vital Signs Temp 98.4 F 10/05/16 15:37 Pulse 79 10/05/16 15:37 Resp 18 10/05/16 15:37 BP 126/81 10/05/16 15:37 Pulse Ox 100 10/05/16 15:37 - Medical History PMH: Anemia, Colonic Polyps, Gastritis Surgical History: Endoscopy - [facility] Procedures D & C NEC (11/18/13) DESTRUCT PERITONEAL TISS (03/09/14) INTRANAS LES DESTRUCTION (11/03/14) LAPAROSCOP LYSIS-ADHES OVA,FALLOP TUBE (03/09/14) RESECTION OF BILATERAL FALLOPIAN TUBES, OPEN APPROACH (05/09/16) RESECTION OF CERVIX, OPEN APPROACH (05/09/16) RESECTION OF UTERUS, OPEN APPROACH (05/09/16) Family History: States: Unknown Family Hx - Social History Hx Tobacco Use: No Hx Alcohol Use: No Hx Substance Use: No - Immunization History Hx Tetanus Toxoid Vaccination: No Hx Influenza Vaccination: No Hx Pneumococcal Vaccination: No Review Of Systems Except As Marked, All Systems Reviewed And Found Negative. Constitutional: Negative for: Fever, Weakness Cardiovascular: Negative for: Chest Pain Respiratory: Negative for: Shortness of Breath, Hemoptysis, SOB with Excertion Gastrointestinal: Negative for: Vomiting, Abdominal Pain Genitourinary: Negative for: Dysuria, Frequency, Hematuria, Pelvic Pain Musculoskeletal: Negative for: Neck Pain, Leg Pain Skin: Negative for: Rash Neurological: Negative for: Weakness, Numbness Physical Exam - Physical Exam Appears: Non-toxic, No Acute Distress Skin: Normal Color, Warm, Dry, No Rash Head: Atraumatic, Normacephalic Eye(s): bilateral: Normal Inspection, PERRL, EOMI Neck: Normal ROM, Supple Chest: Symmetrical, No Deformity Cardiovascular: Rhythm Regular Respiratory: Normal Breath Sounds, No Accessory Muscle Use Gastrointestinal/Abdominal: Soft, No Tenderness Back: No CVA Tenderness, No Vertebral Tenderness, Paraspinal Tenderness (right upper) Extremity: Normal ROM, No Pedal Edema, No Calf Tenderness Neurological/Psych: Oriented x3, Normal Motor, Normal Sensation ED Course And Treatment - Laboratory Results Result Diagrams: 10/05/16 16:12 10/05/16 16:12 Lab Interpretation: No Acute Changes Interpretation Of Abnormal: Possible UTI, urine C&S sent. Urine POC: Negative O2 Sat by Pulse Oximetry: 100 Pulse Ox Interpretation: Normal - Radiology CXR: Viewed By Me, Read By Radiologist CXR Interpretation: Yes: No Acute Disease, Mediastinum (wnl) Progress Note: Urinalysis shows a possible UTI, however pt is refusing any antibiotic treatment because she states that she is allergic to all antibiotics. She denies any urinary symptoms. Therefore I did not start any antibiotic treatment, but sent a urine culture. Reassessment Condition: Improved Disposition Counseled Patient/Family Regarding: Studies Performed, Diagnosis, Need For Followup, Rx Given - Disposition Referrals: Walter Euceda MD [Medical Doctor] - Disposition: HOME/ ROUTINE Disposition Time: 17:57 Condition: IMPROVED Additional Instructions: Drink plenty of fluids. Follow up with your doctor this week for further evaluation and treatment. Return to the ER if you develop fever, chills, abdominal pain, chest pain, trouble urinating, worsening of symptoms or if you have any other concerns. Prescriptions: Naproxen [Naprosyn] 1 tab PO BID PRN #20 tab PRN Reason: Pain Instructions: Back Pain (ED) Forms: [employer] ([place]) - Clinical Impression Clinical Impression: Upper back pain on right side
[2016-10-05 18:24] VITALS: BP 123/81; PULSE 89; TEMP 98
== END 2016-10-05 18:24 | disposition home or self-care (01) ==
LOC: C.ER 15:28
DX: M54.89 Other dorsalgia (principal)
CPT/HCPCS: 71020; 80053; 80324; 80345; 80346; 80349; 80353; 80358; 80361; 81001; 83690; 83992; 84484; 85025; 85378; 85610; 85730; 87086; 96374; 99284; J1885

== ENCOUNTER 2016-10-09 17:09 | Observation (INO) | payer OTHER ==
[2016-10-09 17:09] VITALS: BMI 23.3
--- NOTE | 2016-10-09 17:41 | C.PDOC ---
History Of Present Illness 41 y/o female, history of anemia, gastritis, presents with chest pain x 45 minutes. Pt reports pain is left sided, pressure-like, associated with generalized weakness, left arm numbness, and mild nausea. Pt notes that she had a pain injection performed this morning (about 9 hours ago). Also reports intermittent abdominal pain since her hysterectomy 5 months ago. Denies shortness of breath. Time Seen by Provider: 10/09/16 17:17 Chief Complaint (Nursing): Chest Pain History Per: Patient History/Exam Limitations: no limitations Onset/Duration Of Symptoms: Mins (45) Current Symptoms Are (Timing): Still Present Quality: Pressure, "Pain" Associated Symptoms: Nausea, Other (generalized weakness, left arm numbness) Exacerbating Factors: None Past Medical History Reviewed: Historical Data, Nursing Documentation, Vital Signs Vital Signs: Last Vital Signs Temp 98.1 F 10/09/16 17:18 Pulse 112 H 10/09/16 17:18 Resp 18 10/09/16 17:18 BP 152/82 H 10/09/16 17:18 Pulse Ox 100 10/09/16 18:27 - Medical History PMH: Anemia, Back Problems, Colonic Polyps, Gastritis Surgical History: Endoscopy - [facility] Procedures D & C NEC (11/18/13) DESTRUCT PERITONEAL TISS (03/09/14) INTRANAS LES DESTRUCTION (11/03/14) LAPAROSCOP LYSIS-ADHES OVA,FALLOP TUBE (03/09/14) RESECTION OF BILATERAL FALLOPIAN TUBES, OPEN APPROACH (05/09/16) RESECTION OF CERVIX, OPEN APPROACH (05/09/16) RESECTION OF UTERUS, OPEN APPROACH (05/09/16) Family History: States: Unknown Family Hx - Social History Hx Tobacco Use: No Hx Alcohol Use: No Hx Substance Use: No - Immunization History Hx Tetanus Toxoid Vaccination: No Hx Influenza Vaccination: No Hx Pneumococcal Vaccination: No Review Of Systems Except As Marked, All Systems Reviewed And Found Negative. Constitutional: Positive for: Weakness. Negative for: Fever, Chills Cardiovascular: Positive for: Chest Pain. Negative for: Palpitations Respiratory: Negative for: Cough, Shortness of Breath Gastrointestinal: Positive for: Nausea, Abdominal Pain (intermittent). Negative for: Vomiting Skin: Negative for: Rash Neurological: Positive for: Numbness (left arm) Physical Exam - Physical Exam Additional Physical Exam Comments: Constitutional: No acute distress. Head: Normocephalic. Atraumatic. Eyes: PERRL. ENT: Moist mucous membranes. Neck: Supple. Cardiovascular: Regular rate at bedside. Radial pulse 2+ bilaterally. Chest: No tenderness. Respiratory: Clear to auscultation bilaterally. GI: Soft. Nontender. Nondistended. Back: No CVA tenderness. Musculoskeletal: No tenderness or swelling of extremities. Skin: No rash. Neurologic: Alert, no focal deficit. ED Course And Treatment - Laboratory Results Result Diagrams: 10/09/16 17:50 10/09/16 17:50 O2 Sat by Pulse Oximetry: 100 (RA) Pulse Ox Interpretation: Normal Medical Decision Making Medical Decision Making: EKG IMPRESSION: Sinus tachycardia at 100 bpm, no ST/T wave changes CXR no acute disease. Patient in no acute distress. Aspirin administered. Cardiac enzymes negative x 1. Will keep for cardiac observation. Dr. Orozco accepts patient to hospitalist service. States Dr. Whitlock will evaluate patient when he arrives. Disposition - Disposition Disposition: HOSPITALIZED Disposition Time: 18:27 Condition: FAIR Forms: [employer] ([place]) - POA Core Measure Indicators: Chest Pain - Clinical Impression Clinical Impression: Chest pain - Scribe Statement The provider has reviewed the documentation as recorded by the Scribe SM All medical record entries made by the Scribe were at my direction and personally dictated by me. I have reviewed the chart and agree that the record accurately reflects my personal performance of the history, physical exam, medical decision making, and the department course for this patient. I have also personally directed, reviewed, and agree with the discharge instructions and disposition.
[2016-10-09 17:54] LABS: BASO % 0.4 % (0.0-2.0); LYMPH # 0.6 K/uL (1.0-4.3); MEAN CELL VOLUME 81.6 fL (81.0-99.0); MEAN CORPUSCULAR HEMOGLOBIN 26.9 pg (27.0-31.0); MEAN PLATELET VOLUME 7.4 fL (7.2-11.7); MONO # 0.1 K/uL (0.0-0.8); MONO % 1.2 % (0.0-10.0); PLATELET COUNT 356 K/uL (130-400); RED CELL DISTRIBUTION WIDTH 14.6 % (11.5-14.5); WHITE BLOOD COUNT 6.5 K/uL (4.8-10.8)
[2016-10-09 18:04] LABS: CHLORIDE 103 mmol/L (98-107); SODIUM 139 mmol/L (132-148)
[2016-10-09 18:06] LABS: AST/SGOT 21 U/L (14-36); BILIRUBIN,TOTAL 0.4 mg/dL (0.2-1.3); CARBON DIOXIDE 23 mmol/L (22-30); GFR AFRICAN-AMERICAN > 60
[2016-10-09 18:07] LABS: ALKALINE PHOSPHATASE 101 U/L (38-126); ALT/SGPT 31 U/L (9-52); BLOOD UREA NITROGEN 10 mg/dL (7-17); CALCIUM 9.3 mg/dl (8.6-10.4); GLUCOSE,RANDOM 203 mg/dL (65-105); TOTAL PROTEIN 7.7 g/dL (6.3-8.3)
[2016-10-09 19:01] LABS: NEUTROPHIL 85 % (50-75); TOTAL CELLS COUNTED 100
[2016-10-09 19:02] LABS: LARGE PLATELETS PRESENT
[2016-10-09 20:33] VITALS: O2SAT 98
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
[2016-10-09] MEDS: Acetaminophen-Codeine 300/30 mg Tab PO PRN (22:08)
[2016-10-09] MEDS: Pantoprazole 40 mg EC Tab PO SCH (22:09)
[2016-10-10] MEDS: Acetaminophen-Codeine 300/30 mg Tab PO PRN ×2 (02:43→09:20)
[2016-10-10 06:05] LABS: CHLORIDE 103 mmol/L (98-107); SODIUM 140 mmol/L (132-148)
[2016-10-10 06:06] LABS: POTASSIUM 3.9 mmol/L (3.6-5.2)
[2016-10-10 06:07] LABS: CARBON DIOXIDE 26 mmol/L (22-30); CHOLESTEROL 208 mg/dL (0-199); GFR AFRICAN-AMERICAN > 60
[2016-10-10 06:08] LABS: ALKALINE PHOSPHATASE 96 U/L (38-126); ALT/SGPT 34 U/L (9-52); AST/SGOT 40 U/L (14-36); BILIRUBIN,TOTAL 0.4 mg/dL (0.2-1.3); BLOOD UREA NITROGEN 9 mg/dL (7-17); CALCIUM 9.4 mg/dl (8.6-10.4); GLUCOSE,RANDOM 103 mg/dL (65-105); TOTAL PROTEIN 7.2 g/dL (6.3-8.3)
[2016-10-10 06:15] LABS: RBC URINE 21 /hpf (0-3); URINE BACTERIA RARE (<OCC); URINE BILIRUBIN NEGATIVE (NEGATIVE); URINE BLOOD 1+ (NEGATIVE); URINE COLOR Yellow (YELLOW); URINE GLUCOSE (UA) NORMAL (Normal); URINE KETONE NEGATIVE (NEGATIVE); URINE LEUKOCYTE ESTERASE 3+ Leu/uL (Negative); URINE PROTEIN NEGATIVE (NEGATIVE); URINE UROBILINOGEN NORMAL mg/dL (0.2-1.0); WBC URINE 93 /hpf (0-5)
[2016-10-10 06:39] LABS: THYROID STIMULATING HORMONE 2.13 mIU/L (0.46-4.68)
[2016-10-10 07:26] LABS: BASO % 0.2 % (0.0-2.0); HEMATOCRIT 33.6 % (34.0-47.0); LYMPH # 1.7 K/uL (1.0-4.3); MEAN CELL VOLUME 81.3 fL (81.0-99.0); MEAN CORPUSCULAR HEMOGLOBIN 26.5 pg (27.0-31.0); MEAN CORPUSCULAR HGB CONC 32.7 g/dL (33.0-37.0); MEAN PLATELET VOLUME 7.7 fL (7.2-11.7); MONO # 0.7 K/uL (0.0-0.8); RED CELL DISTRIBUTION WIDTH 14.6 % (11.5-14.5); WHITE BLOOD COUNT 11.6 K/uL (4.8-10.8)
[2016-10-10 08:33] VITALS: PULSE 64
--- NOTE | 2016-10-10 08:43 | RAD ---
HISTORY: cp COMPARISON: Chest x-ray performed 10/05/16 TECHNIQUE: Chest, one view. FINDINGS: Examination limited by habitus. LUNGS: No focal consolidation. Please note that chest x-ray has limited sensitivity for the detection of pulmonary masses. PLEURA: No significant pleural effusion identified. No definite pneumothorax . CARDIOVASCULAR: Heart size appears within normal limits. OSSEOUS STRUCTURES: No acute osseous abnormality identified. VISUALIZED UPPER ABDOMEN: Unremarkable. OTHER FINDINGS: None. IMPRESSION: No focal consolidation, significant pleural effusion, or definite pneumothorax identified.
--- NOTE | 2016-10-10 09:13 | CP.PCM.PN ---
Addendum entered and electronically signed by Sav Dudley DO 10/10/16 16:03: Pending Venous Dopplers, as per Dr. Marie. If normal, patient may be discharged, to get a Holter monitor done outpatient. Original Note: <Sav Dudley - Last Filed: 10/10/16 09:02> Subjective - Date & Time of Evaluation Date of Evaluation: 10/10/16 Time of Evaluation: 07:30 - Subjective Subjective: Medicine Note- Hospitalist Note Patient was seen and examined at bedside. Patient reports that she is still having pressure like chest pain , mid to left sternum, describing it as a 6/10. She says the medications she has been given has helped some. Patient also reports that she still has lower abdominal pain, but that it is chronic in nature and has been on going since she had her total abdominal hysterectomy in April, for which she follows with Dr. Newby. Patient was again informed that she may have a urinary tract infection, but patient continues to refuse any antibiotics. She says that she gets UTIs frequently and she does not want to risk having an allergic reaction to antibiotics. Patient reports no dysuria, fevers or chills. Patient reports no additional acute complaints. No events overnight, per nursing. Objective - Vital Signs/Intake and Output Vital Signs (last 24 hours): Temp Pulse Resp BP Pulse Ox 98.2 F 64 18 105/63 98 10/10/16 08:30 10/10/16 08:30 10/10/16 08:30 10/10/16 08:30 10/10/16 08:30 - Medications Medications: Current Medications Acetaminophen/Codeine Phosphate (Tylenol/Codeine 300 Mg/30 Mg) 1 ea PO Q6 PRN PRN Reason: Pain, moderate (4-7) Last Admin: 10/10/16 02:43 Dose: 1 ea Aspirin (Aspirin Chewable) 81 mg PO DAILY [facility] Heparin Sodium (Porcine) (Heparin) 5,000 units SC Q8 [facility] Last Admin: 10/10/16 05:05 Dose: 5,000 units Nitroglycerin (Nitrostat Sl Tab) 0.4 mg SL Q5M PRN PRN Reason: FOR CHEST PAIN Pantoprazole Sodium (Protonix Ec Tab) 40 mg PO DAILY [facility] Last Admin: 10/09/16 22:09 Dose: 40 mg - Labs Labs: 10/10/16 07:00 10/10/16 05:39 - Constitutional Appears: Non-toxic, No Acute Distress - Head Exam Head Exam: ATRAUMATIC, NORMAL INSPECTION, NORMOCEPHALIC - Eye Exam Pupil Exam: NORMAL ACCOMODATION, PERRL - ENT Exam ENT Exam: Mucous Membranes Moist - Neck Exam Neck Exam: Normal Inspection - Respiratory Exam Respiratory Exam: Clear to Ausculation Bilateral, NORMAL BREATHING PATTERN. absent: Prolonged Expiratory Phase, Rales, Rhonchi, Wheezes - Cardiovascular Exam Cardiovascular Exam: REGULAR RHYTHM, +S1, +S2 - GI/Abdominal Exam GI & Abdominal Exam: Soft, Tenderness (lower abdomen/suprapubic tenderness), Normal Bowel Sounds. absent: Diminished Bowel Sounds, Hypoactive Bowel Sounds - Extremities Exam Extremities Exam: Normal Capillary Refill, Normal Inspection - Neurological Exam Neurological Exam: Alert, Awake, Oriented x3 - Psychiatric Exam Psychiatric exam: Normal Affect, Normal Mood - Skin Skin Exam: Dry, Intact, Normal Color, Warm Assessment and Plan - Assessment and Plan (Free Text) Assessment: Chest pain, R/O ACS ROMIs negative x 3 EKG- Sinus tachycardia HR 103bpm Nitro 0.4mg SL Q5m PRN Continue Asa 81mg PO Daily Consult Cardiology- Dr. Marie f/u 2d echo Leukocytosis WBC 11.6 Neutrophils 78.8 bands 7 patient with ER visit on 10/05 for back pain- different than chronic pain UA 10/10/16- +3 LE, WBC 93, RBC 21, Squamous 26 Urine culture- 10/05/16- No Growth f/u blood cultures Patient was informed that she may have a UTI that may require antibiotics, but patient is refusing all antibiotics at this time. Hx of Chronic Pelvic Pain s/p total abdominal hysterectomy on 05/09/[address] Newby outpatient Hx blood per rectum rectal exam negative for ashlee blood occult blood negative Hx Anemia Hgb stable at 11.0 will continue to monitor Lumbar disc herniations pt s/p transforaminal injection today will continue home medication tylenol with codeine patient with reported morphine allergy- will continue to monitor patient will get PT/ OT evaluation Impaired Glucose Tolerance HgbA1C 5.7 Hx Gastritis Continue protonix 40mg daily Prophylactic measure SCDs heparin 5000U SC Q8h protonix 40mg Daily <Bhavin Orozco - Last Filed: 10/10/16 18:46> Objective - Vital Signs/Intake and Output Vital Signs (last 24 hours): Temp Pulse Resp BP Pulse Ox 97.6 F 64 20 98/65 L 98 10/10/16 15:20 10/10/16 15:20 10/10/16 15:20 10/10/16 15:20 10/10/16 15:20 - Labs Labs: 10/10/16 07:00 10/10/16 05:39 Attending/Attestation - Attestation I have personally seen and examined this patient.: Yes I have fully participated in the care of the patient.: Yes I have reviewed all pertinent clinical information, including history, physical exam and plan: Yes Notes (Text): 10/10/16 18:44 Patient was seen and examined at 1:45 PM 10/10/16 Stressed to patient that she will need follow up with her Billing Administrator for her recent Hysterectomy and her frequent UTIs for which she does not want to be on antibiotics right now (she is asymptomatic) She stated that she had 6/10 pain in her left chest. However, she was resting comfortable watching a movie and was in no apparent distress. Exam was completely uremarkable. F/U Further recommendations from Branch Rental Manager Dr. Marie. Bhavin Orozco D.O.
[2016-10-10] MEDS: Pantoprazole 40 mg EC Tab PO SCH (09:18)
--- NOTE | 2016-10-10 12:36 | CARD ---
APPROVED REPORT EKG Measurement Heart [id number] <Conclusion> Sinus tachycardia Cannot rule out Anterior infarct, age undetermined Abnormal ECG
--- NOTE | 2016-10-10 13:15 | CARD ---
APPROVED REPORT EXAM: Two-dimensional and M-mode echocardiogram with Doppler and color Doppler. Other Information Quality : GoodRhythm : NSR INDICATION Chest Pain RISK FACTORS Hyperlipidemia 2D DIMENSIONS IVSd0.7 (0.7-1.1cm)LVDd4.7 (3.9-5.9cm) PWd0.7 (0.7-1.1cm)LVDs2.9 (2.5-4.0cm) FS (%) 37.6 %PWs3.6 (0.8-1.2cm) LVEF (%)67.7 (>50%) M-Mode DIMENSIONS Left Atrium (MM)3.72 (2.5-4.0cm)Aortic Root2.61 (2.2-3.7cm) Aortic Cusp Exc.1.79 (1.5-2.0cm) Mitral Valve MV E Ccqiufkr52.7cm/sMV A Dnygtjth47.2cm/sE/A ratio1.7 TDI E/Lateral E'0.0E/Medial E'0.0 Tricuspid Valve TR Peak [id number]/sTR Peak Gr.[id number] LEFT VENTRICLE The left ventricle is normal size. There is normal left ventricular wall thickness. The left ventricular function is normal. The left ventricular ejection fraction is within the normal range. There is normal LV segmental wall motion. The left ventricular diastolic function is normal. No left ventricle thrombus noted on this study. There is no ventricular septal defect visualized. There is no left ventricular aneurysm. There is no mass noted in the left ventricle. RIGHT VENTRICLE The right ventricle is normal size. There is normal right ventricular wall thickness. The right ventricular systolic function is normal. ATRIA The left atrium size is normal. The right atrium size is normal. The interatrial septum is intact with no evidence for an atrial septal defect. AORTIC VALVE The aortic valve is normal in structure. No aortic regurgitation is present. There is no aortic valvular stenosis. There is no aortic valvular vegetation. MITRAL VALVE The mitral valve is normal in structure. There is no mitral valve stenosis. There is no mitral valve regurgitation noted. TRICUSPID VALVE The tricuspid valve is normal in structure. There is no tricuspid valve regurgitation noted. There is no tricuspid valve stenosis. PULMONIC VALVE The pulmonary valve is normal in structure. There is no pulmonic valvular regurgitation. GREAT VESSELS The aortic root is normal in size. The ascending aorta is normal in size. The pulmonary artery is normal. The IVC is normal in size and collapses >50% with inspiration. PERICARDIAL EFFUSION There is no pericardial effusion. <Conclusion> NORMAL STUDY. LVEF IS 70%.
[2016-10-10 16:00] VITALS: BP 98/65; RESP 20; TEMP 97.6
--- NOTE | 2016-10-10 16:26 | CP.PCM.DIS ---
Provider - Provider Date of Admission: 10/09/16 18:37 Attending physician: Frank Whitlock MD Primary care physician: Dr. Euceda Consults: Cardiology- Dr. Bautista Marie Time Spent in preparation of Discharge (in minutes): 45 Diagnosis - Discharge Diagnosis (1) Chest pain Status: Acute Comment: ROMIs negative x 3, EKG showed no acute changes. evaluated by Dr. Marie, cardiology. Recommends venous dopplers and outpatient Holter monitor testing. Hospital Course - Lab Results Lab Results: Most Recent Lab Values WBC 11.6 K/uL (4.8-10.8) H D 10/10/16 07:00 RBC 4.14 Mil/uL (3.80-5.20) 10/10/16 07:00 Hgb 11.0 g/dL (11.0-16.0) 10/10/16 07:00 Hct 33.6 % (34.0-47.0) L 10/10/16 07:00 MCV 81.3 fL (81.0-99.0) 10/10/16 07:00 MCH 26.5 pg (27.0-31.0) L 10/10/16 07:00 MCHC 32.7 g/dL (33.0-37.0) L 10/10/16 07:00 RDW 14.6 % (11.5-14.5) H 10/10/16 07:00 Plt Count 352 K/uL (130-400) 10/10/16 07:00 MPV 7.7 fL (7.2-11.7) 10/10/16 07:00 Neut % (Auto) 78.8 % (50.0-75.0) H 10/10/16 07:00 Lymph % (Auto) 15.0 % (20.0-40.0) L 10/10/16 07:00 [place] % (Auto) 6.0 % (0.0-10.0) 10/10/16 07:00 Eos % (Auto) 0.0 % (0.0-4.0) 10/10/16 07:00 Baso % (Auto) 0.2 % (0.0-2.0) 10/10/16 07:00 Neut # 9.1 K/uL (1.8-7.0) H 10/10/16 07:00 Lymph # 1.7 K/uL (1.0-4.3) 10/10/16 07:00 [place] # 0.7 K/uL (0.0-0.8) 10/10/16 07:00 Eos # 0.0 K/uL (0.0-0.7) 10/10/16 07:00 Baso # 0.0 K/uL (0.0-0.2) 10/10/16 07:00 Neutrophils % (Manual) 85 % (50-75) H 10/09/16 17:50 Band Neutrophils % 7 % (0-2) H 10/09/16 17:50 Lymphocytes % (Manual) 5 % (20-40) L 10/09/16 17:50 Monocytes % (Manual) 3 % (0-10) 10/09/16 17:50 Platelet Estimate Normal (NORMAL) 10/09/16 17:50 Large Platelets Present 10/09/16 17:50 Microcytosis (manual) Slight 10/09/16 17:50 Ovalocytes Slight 10/09/16 17:50 Sodium 140 mmol/L (132-148) 10/10/16 05:39 Potassium 3.9 mmol/L (3.6-5.2) 10/10/16 05:39 Chloride 103 mmol/L (98-107) 10/10/16 05:39 Carbon Dioxide 26 mmol/L (22-30) 10/10/16 05:39 Anion Gap 14 (10-20) 10/10/16 05:39 BUN 9 mg/dL (7-17) 10/10/16 05:39 Creatinine 0.6 MG/DL (0.7-1.2) L 10/10/16 05:39 Est GFR ( Amer) > 60 10/10/16 05:39 Est GFR (Non-Af Amer) > 60 10/10/16 05:39 Random Glucose 103 mg/dL (65-105) 10/10/16 05:39 Hemoglobin A1c 5.7 % (4.2-6.5) 10/09/16 21:44 Calcium 9.4 mg/dl (8.6-10.4) 10/10/16 05:39 Total Bilirubin 0.4 mg/dL (0.2-1.3) 10/10/16 05:39 AST 40 U/L (14-36) H D 10/10/16 05:39 ALT 34 U/L (9-52) 10/10/16 05:39 Alkaline Phosphatase 96 U/L (38-126) 10/10/16 05:39 Total Creatine Kinase 39 U/L (30-135) 10/10/16 05:39 CK-MB (Mass) 0.51 ng/mL (0.0-3.38) 10/10/16 05:39 Troponin I < 0.0120 ng/mL (0.00-0.120) 10/09/16 17:50 Troponin I, Quant < 0.0120 ng/mL (0.00-0.120) 10/10/16 05:39 Total Protein 7.2 g/dL (6.3-8.3) 10/10/16 05:39 Albumin 3.7 g/dL (3.5-5.0) 10/10/16 05:39 Globulin 3.6 gm/dL (2.2-3.9) 10/10/16 05:39 Albumin/Globulin Ratio 1.0 (1.0-2.1) 10/10/16 05:39 Triglycerides 96 mg/dL (0-149) 10/10/16 05:39 Cholesterol 208 mg/dL (0-199) H 10/10/16 05:39 LDL Cholesterol Direct 144 mg/dL (0-129) H 10/10/16 05:39 HDL Cholesterol 41 mg/dL (30-70) 10/10/16 05:39 TSH 3rd Generation 2.13 mIU/L (0.46-4.68) 10/10/16 05:39 Urine Color Yellow (YELLOW) 10/10/16 06:02 Urine Clarity Hazy (Clear) 10/10/16 06:02 Urine pH 6.0 (5.0-8.0) 10/10/16 06:02 Ur Specific [place] 1.019 (1.003-1.030) 10/10/16 06:02 Urine Protein Negative mg/dL (NEGATIVE) 10/10/16 06:02 Urine Glucose (UA) Normal mg/dL (Normal) 10/10/16 06:02 Urine Ketones Negative mg/dL (NEGATIVE) 10/10/16 06:02 Urine Blood 1+ (NEGATIVE) H 10/10/16 06:02 Urine Nitrate Negative (NEGATIVE) 10/10/16 06:02 Urine Bilirubin Negative (NEGATIVE) 10/10/16 06:02 Urine Urobilinogen Normal mg/dL (0.2-1.0) 10/10/16 06:02 Ur Leukocyte Esterase 3+ [place]/uL (Negative) H 10/10/16 06:02 Urine WBC (Auto) 93 /hpf (0-5) H 10/10/16 06:02 Urine RBC (Auto) 21 /hpf (0-3) H 10/10/16 06:02 Ur Squamous Epith Cells 26 /hpf (0-5) H 10/10/16 06:02 Urine Bacteria Rare (<OCC) 10/10/16 06:02 Stool Occult Blood Negative (NEGATIVE) 10/09/16 20:15 - Hospital Course Hospital Course: As per admission documentation: Patient is a 41 year old female with past medical history anemia, gastritis, colonic polyps, angina who presents to the ED with complaint of chest pain that began one hour prior to her ED presentation. Patient states her friend took her to the ED. Patient states earlier in the day she had a transforaminal injection in her lumbar spine for herniated discs. Patient was resting at home when the chest pain began. Patient states that she is not as active lately due to her back pain and cannot state whether exercise worsened the chest pain. Patient reports the pain as pressure that radiates to her left arm and abdomen. She states similar pain when she was here in February. Patient reports subjective fever, chills, diaphoresis, weakness, dizziness, palpitations, shortness of breath, nausea, abdominal pain, back pain, leg pain. Patient denies recent travel. Patient also reports a tingling sensation in her legs like ants are crawling on her since her spinal injection. Patient also reports intermittent bright red blood per rectum when she walks for a long distance, but denies recent occurrences. Patient was admitted for observation for chest pain, to rule out ACS on the telemetry floor. She was started on aspirin 81mg and given tylenol with codeine for her chronic pelvic pain. Patient's cardiac enzymes returned negative x 3. EKGs showed no acute changes. Patient was evaluated by Dr. Marie, cardiology , who recommended that the patient get a venous doppler and outpatient Holter monitor testing. Patient's chest pain had improved and patient was discharged with instructions below. Discharge instructions: Please discharge patient home, as per Dr. Bhavin Orozco. Patient is to followup with her primary medical doctor, Dr. Euceda, within 1 week of discharge. Patient will need to get an outpatient bilateral venous doppler in order to rule out DVT. Patient is to followup with her structural technician, Dr. Loyola, within 1 week for outpatient evaluation with a Holter monitor. Patient is to followup with her OBGYN, Dr. Newby, for further evaluation of her chronic lower abdominal/pelvic pain. If symptoms worsen, patient is to return to the hospital for further evaluation and treatment. Instructions were explained to the patient. Patient indicated that she both understands and agrees. Discharge Exam - Head Exam Head Exam: ATRAUMATIC, NORMAL INSPECTION, NORMOCEPHALIC - Eye Exam Eye Exam: Normal appearance Pupil Exam: NORMAL ACCOMODATION, PERRL - ENT Exam ENT Exam: Mucous Membranes Moist - Respiratory Exam Respiratory Exam: Clear to PA & Lateral, NORMAL BREATHING PATTERN, UNREMARKABLE. absent: Rales, Rhonchi, Wheezes - Cardiovascular Exam Cardiovascular Exam: REGULAR RHYTHM, +S1, +S2 - GI/Abdominal Exam GI & Abdominal Exam: Normal Bowel Sounds, Soft. absent: Firm, Guarding, Tenderness - Extremities Exam Extremities exam: normal capillary refill, pedal pulses present - Neurological Exam Neurological exam: Alert, Oriented x3 - Psychiatric Exam Psychiatric exam: Normal Affect, Normal Mood - Skin Skin Exam: Dry, Intact, Normal Color, Warm Discharge Plan - Follow Up Plan Condition: FAIR Disposition: HOME/ ROUTINE Additional Instructions: Please discharge patient home, as per Dr. Bhavin Orozco. Patient is to followup with her primary medical doctor, Dr. Euceda, within 1 week of discharge. Patient will need to get an outpatient bilateral venous doppler in order to rule out DVT. Patient is to followup with her structural technician, Dr. Loyola, within 1 week for outpatient evaluation with a Holter monitor. Patient is to followup with her OBGYN, Dr. Newby, for further evaluation of her chronic lower abdominal/pelvic pain. If symptoms worsen, patient is to return to the hospital for further evaluation and treatment. Instructions were explained to the patient. Patient indicated that she both understands and agrees. Referrals: Walter Euceda MD [Medical Doctor] - Rodney Loyola MD [Staff Provider] - Vu Newby [Staff Provider] -
--- NOTE | 2016-10-11 02:41 | CON ---
DATE: 10/10/2016 REASON FOR CONSULTATION: Palpitation. HISTORY OF PRESENT ILLNESS: The patient is a 41-year-old female who presented because of palpitation, although the patient mentioned to other physician that she did report chest pain on admission; however, when I took her history, the patient stated that she is only experiencing palpitation after she arrived home after having an outpatient epidural injection. The patient denies any dizziness or diaphoresis at that time. The patient states she underwent cardiac catheterization in [facility] [place] in 2014 and was told it was okay. The patient is constantly experiencing left lower leg pain. SOCIAL HISTORY: Nonsmoker. MEDICATIONS: Aspirin 81 mg once a day, heparin 5000 units q. 8 hours subcutaneously, Protonix 40 mg p.o. once a day, Tylenol with codeine one tablet q. 6 hours p.r.n. REVIEW OF SYSTEMS: No nausea or vomiting. No fever or chills. No dizziness or syncope. PHYSICAL EXAMINATION: GENERAL: The patient is a middle aged female who does not appear to be in any distress. VITAL SIGNS: Blood pressure 105/63, heart rate 64, temperature 98.2, and respirations 18. HEENT: Normocephalic. NECK: No JVD. CHEST: Clear. HEART: S1 and S2 regular. EXTREMITIES: No edema or calf tenderness. LABORATORY DATA: SMA-7 is within normal limits except for creatinine 0.6. Three sets of troponins are negative. LDL cholesterol is 208. Total cholesterol is 208, LDL cholesterol is 144. Both are elevated. TSH level is within normal limits. EKG reveals sinus tachycardia at the rate of 103, poor R-wave progression. Associated 12-lead EKG revealed sinus bradycardia in the 50s. Chest x-ray was unremarkable. ASSESSMENT: 1. Palpitation without underlying tachyarrhythmia. 2. Left leg pain rule out deep venous thrombosis. RECOMMENDATIONS: After reviewing the echocardiograph study, which was a normal study, I recommend continuation of aspirin, subcutaneous heparin, and obtain a cardiac catheterization report from [facility] [place] and schedule the patient for venous Doppler of the lower extremities. The case was discussed with Dr. Bhavin Orozco. Bautista Marie MD [facility] # [id number]
== END 2016-10-10 17:45 | disposition home or self-care (01) ==
LOC: C.ER 17:09 → C.9E 18:37 → C.6T 19:38
PROVIDERS: ADMIT Family Medicine; ATTEND Family Medicine
DX: R00.1 Bradycardia, unspecified (principal); N92.0 Excessive and frequent menstruation with regular cycle; N39.0 Urinary tract infection, site not specified; G89.29 Other chronic pain; D72.825 Bandemia
CPT/HCPCS: 36415; 71010; 80053; 80061; 81001; 82550; 82553; 83036; 84443; 84484; 85025; 87040; 87086; 93005; 93306; 97116; 97162; 99285; G0328; G0378; G8978; G8979; J1644

== ENCOUNTER 2016-11-13 09:19 | Emergency (ER) | payer OTHER ==
[2016-11-13 09:19] VITALS: BMI 23.3
[2016-11-13 09:31] VITALS: TEMP 98
--- NOTE | 2016-11-13 09:43 | C.PDOC ---
History Of Present Illness 41F c/o right sided chest pain, left sided upper back pain, abdominal pain since 8am this morning. had same pain last month and was admitted here. denies pain in the interim. pain worse w breathing. assoc nausea. took tylenol without relief. Time Seen by Provider: 11/13/16 09:38 Chief Complaint (Nursing): Chest Pain Past Medical History Vital Signs: Last Vital Signs Temp 98.0 F 11/13/16 09:22 Pulse 66 11/13/16 15:49 Resp 18 11/13/16 15:49 BP 115/61 11/13/16 15:49 Pulse Ox 100 11/13/16 16:46 - Medical History PMH: Anemia, Back Problems, Colonic Polyps, Gastritis Denies: Chronic Kidney Disease Surgical History: Endoscopy - [facility] Procedures D & C NEC (11/18/13) DESTRUCT PERITONEAL TISS (03/09/14) INTRANAS LES DESTRUCTION (11/03/14) LAPAROSCOP LYSIS-ADHES OVA,FALLOP TUBE (03/09/14) RESECTION OF BILATERAL FALLOPIAN TUBES, OPEN APPROACH (05/09/16) RESECTION OF CERVIX, OPEN APPROACH (05/09/16) RESECTION OF UTERUS, OPEN APPROACH (05/09/16) Family History: States: MS, Diabetes - Social History Hx Tobacco Use: No Hx Alcohol Use: No Hx Substance Use: No - Immunization History Hx Tetanus Toxoid Vaccination: No Hx Influenza Vaccination: No Hx Pneumococcal Vaccination: No Review Of Systems Except As Marked, All Systems Reviewed And Found Negative. Constitutional: Negative for: Fever, Chills Cardiovascular: Positive for: Chest Pain Respiratory: Negative for: Cough, Shortness of Breath Gastrointestinal: Positive for: Nausea, Abdominal Pain. Negative for: Vomiting , Diarrhea Genitourinary: Negative for: Dysuria Musculoskeletal: Positive for: Back Pain (chronic) Neurological: Negative for: Weakness, Numbness Physical Exam - Physical Exam Appears: Well, Non-toxic, No Acute Distress Skin: Warm, Dry Head: Atraumatic Eye(s): bilateral: PERRL Nose: No Epistaxis Oral Mucosa: Moist Neck: Normal ROM Chest: No Tenderness Cardiovascular: Rhythm Regular Respiratory: No Decreased Breath Sounds, No Accessory Muscle Use, No Rales, No Rhonchi, No Stridor, No Wheezing Gastrointestinal/Abdominal: Soft, Tenderness (mainly epigastric), No Distention , No Guarding, No Rebound Back: Paraspinal Tenderness (left mid to upper thoracic) Extremity: No Calf Tenderness, No Swelling Pulses: Left Radial: Normal, Right Radial: Normal Neurological/Psych: Oriented x3, Normal Motor, Normal Sensation, Other (no focal deficits) ED Course And Treatment - Laboratory Results Result Diagrams: 11/13/16 10:12 11/13/16 10:12 O2 Sat by Pulse Oximetry: 100 Medical Decision Making Medical Decision Making: ecg- [id number], nl axis, nl int, no acute ischemia 444pm pt resting quietly, appears well, no distress. I disc her disc results, plan for f/u, and rtr. she v/u and agrees w plan. HEART score low risk PROCEDURE: CT Chest with contrast (Pulmonary Angiogram) HISTORY: cp +ddimer COMPARISON: None available. TECHNIQUE: Axial computed tomography images were obtained of the chest in the pulmonary arterial phase of enhancement. Coronal and sagittal reformatted images were created and reviewed. Intravenous contrast dose: 100 mL Visipaque 320 Radiation dose: Total exam DLP = 333.76 mGy-cm. This CT exam was performed using one or more of the following dose reduction techniques: Automated exposure control, adjustment of the mA and/or kV according to patient size, and/or use of iterative reconstruction technique. FINDINGS: PULMONARY ARTERIES: Unremarkable. No pulmonary embolism. AORTA: No acute findings. No thoracic aortic aneurysm. LUNGS: No evidence of pneumonia or mass lesion in the lungs. PLEURAL SPACES: Unremarkable. No effusion or pneuomothorax. HEART: Unremarkable. No cardiomegaly. No significant pericardial effusion. LYMPH NODES: No lymphadenopathy. BONES, CHEST WALL: Unremarkable. No fracture or destructive lesion OTHER FINDINGS: Unremarkable. IMPRESSION: Unremarkable CT pulmonary angiogram. No pulmonary embolus. Disposition - Disposition Disposition: HOME/ ROUTINE Disposition Time: 16:45 Condition: STABLE Additional Instructions: Please follow up with your doctor in the next couple days. Return to the ER for any worsening symptoms or for any other concerns. Instructions: Chest Pain (ED) Forms: Gen Discharge Inst Icelandic, [employer] (Paraguayan) Print Language: PALESTINIAN - Clinical Impression Clinical Impression: Chest pain
[2016-11-13 10:19] LABS: BASO # 0.1 K/uL (0.0-0.2); BASO % 0.9 % (0.0-2.0); EOS # 0.2 K/uL (0.0-0.7); EOS % 2.1 % (0.0-4.0); HEMATOCRIT 36.2 % (34.0-47.0); LYMPH # 1.9 K/uL (1.0-4.3); LYMPH % 22.2 % (20.0-40.0); MEAN CELL VOLUME 82.9 fL (81.0-99.0); MEAN CORPUSCULAR HEMOGLOBIN 27.5 pg (27.0-31.0); MEAN CORPUSCULAR HGB CONC 33.2 g/dL (33.0-37.0); MEAN PLATELET VOLUME 7.7 fL (7.2-11.7); MONO # 0.4 K/uL (0.0-0.8); MONO % 4.8 % (0.0-10.0); RED CELL DISTRIBUTION WIDTH 14.2 % (11.5-14.5); WHITE BLOOD COUNT 8.6 K/uL (4.8-10.8)
[2016-11-13 10:38] LABS: CHLORIDE 101 mmol/L (98-107); SODIUM 142 mmol/L (132-148)
[2016-11-13 10:39] LABS: POTASSIUM 3.7 mmol/L (3.6-5.2)
[2016-11-13 10:41] LABS: ALB/GLOB RATIO 1.2 (1.0-2.1); ALKALINE PHOSPHATASE 93 U/L (38-126); ALT/SGPT 46 U/L (9-52); AST/SGOT 28 U/L (14-36); BILIRUBIN,TOTAL 0.4 mg/dL (0.2-1.3); BLOOD UREA NITROGEN 12 mg/dL (7-17); CALCIUM 9.6 mg/dl (8.6-10.4); CARBON DIOXIDE 24 mmol/L (22-30); GFR AFRICAN-AMERICAN > 60; GLUCOSE,RANDOM 77 mg/dL (65-105); TOTAL PROTEIN 7.8 g/dL (6.3-8.3)
[2016-11-13] MEDS ORDERED: Barium Sulfate for Susp 96% w/w 176g Bottle PR ONE (11:09)
[2016-11-13] MEDS ORDERED: Iodixanol 320 MG/ML 100 ML BOTTLE IV ONE (14:41)
--- NOTE | 2016-11-13 15:07 | RAD ---
HISTORY: cp COMPARISON: Chest x-ray performed 10/09/16 TECHNIQUE: Chest PA and lateral FINDINGS: Examination limited by habitus. LUNGS: No focal consolidation. Please note that chest x-ray has limited sensitivity for the detection of pulmonary masses. PLEURA: No significant pleural effusion identified. No definite pneumothorax . CARDIOVASCULAR: Heart size appears within normal limits. OSSEOUS STRUCTURES: No acute osseous abnormality identified. VISUALIZED UPPER ABDOMEN: Mild elevation of the right hemidiaphragm. OTHER FINDINGS: None. IMPRESSION: No focal consolidation, significant pleural effusion, or definite pneumothorax identified.
[2016-11-13 15:50] VITALS: BP 115/61; PULSE 66; RESP 18
--- NOTE | 2016-11-13 16:40 | CT ---
PROCEDURE: CT Chest with contrast (Pulmonary Angiogram) HISTORY: cp +ddimer COMPARISON: None available. TECHNIQUE: Axial computed tomography images were obtained of the chest in the pulmonary arterial phase of enhancement. Coronal and sagittal reformatted images were created and reviewed. Intravenous contrast dose: 100 mL Visipaque 320 Radiation dose: Total exam DLP = 333.76 mGy-cm. This CT exam was performed using one or more of the following dose reduction techniques: Automated exposure control, adjustment of the mA and/or kV according to patient size, and/or use of iterative reconstruction technique. FINDINGS: PULMONARY ARTERIES: Unremarkable. No pulmonary embolism. AORTA: No acute findings. No thoracic aortic aneurysm. LUNGS: No evidence of pneumonia or mass lesion in the lungs. PLEURAL SPACES: Unremarkable. No effusion or pneuomothorax. HEART: Unremarkable. No cardiomegaly. No significant pericardial effusion. LYMPH NODES: No lymphadenopathy. BONES, CHEST WALL: Unremarkable. No fracture or destructive lesion OTHER FINDINGS: Unremarkable. IMPRESSION: Unremarkable CT pulmonary angiogram. No pulmonary embolus.
[2016-11-13 16:46] VITALS: O2SAT 100
--- NOTE | 2016-11-14 14:28 | CARD ---
APPROVED REPORT EKG Measurement Heart [id number] VT [id number] <Conclusion> Normal sinus rhythm Normal ECG
== END 2016-11-13 16:55 | disposition home or self-care (01) ==
LOC: C.ER 09:19
DX: R07.9 Chest pain, unspecified (principal)
CPT/HCPCS: 71020; 71275; 80053; 83690; 84484; 85025; 85378; 93005; 96374; 96375; 99285; J1885; J2405; Q9967

== ENCOUNTER 2017-02-09 00:05 | Emergency (ER) | payer OTHER ==
[2017-02-09 00:05] VITALS: BMI 23.3
--- NOTE | 2017-02-09 00:19 | C.PDOC ---
History Of Present Illness Elliot Leyva is a 42 year old female, with no past medical history, who presents to the emergency department complaining of chest discomfort and mildly itchy rash on abdomen since today. She describes the pain as dull, 3/10 discomfort, and somewhat reproducible with palpation and movement. Patient is able to speak in complete sentences. She denies any fever, chills, nausea or vomit. PMD: None provided. Time Seen by Provider: 02/09/17 00:18 Chief Complaint (Nursing): Chest Pain History Per: Patient History/Exam Limitations: no limitations Onset/Duration Of Symptoms: Days (x1) Current Symptoms Are (Timing): Still Present Severity: Mild Pain Scale Rating Of: 3 Past Medical History Reviewed: Historical Data, Nursing Documentation, Vital Signs Vital Signs: Last Vital Signs Temp 97.7 F 02/09/17 00:11 Pulse 73 02/09/17 01:59 Resp 16 02/09/17 01:59 BP 113/65 02/09/17 01:59 Pulse Ox 100 02/09/17 02:24 - Medical History PMH: Anemia, Back Problems, Colonic Polyps, Gastritis Denies: Chronic Kidney Disease Surgical History: Endoscopy - [facility] Procedures D & C NEC (11/18/13) DESTRUCT PERITONEAL TISS (03/09/14) INTRANAS LES DESTRUCTION (11/03/14) LAPAROSCOP LYSIS-ADHES OVA,FALLOP TUBE (03/09/14) RESECTION OF BILATERAL FALLOPIAN TUBES, OPEN APPROACH (05/09/16) RESECTION OF CERVIX, OPEN APPROACH (05/09/16) RESECTION OF UTERUS, OPEN APPROACH (05/09/16) Family History: States: Unknown Family Hx, CA, Diabetes - Social History Hx Tobacco Use: No Hx Alcohol Use: No Hx Substance Use: No - Immunization History Hx Tetanus Toxoid Vaccination: No Hx Influenza Vaccination: No Hx Pneumococcal Vaccination: No Review Of Systems Constitutional: Negative for: Fever, Chills Cardiovascular: Positive for: Other (chest discomfort) Gastrointestinal: Negative for: Nausea, Vomiting Skin: Positive for: Rash (on abdomen, mildly itchy) Physical Exam - Physical Exam Skin: Warm, Dry, Rash (urticaria on abdomen) Head: Normacephalic Neck: Normal ROM, Supple Chest: Other (mildly reproducible chest wall pain) Cardiovascular: Rhythm Regular Respiratory: No Rales, No Rhonchi, No Wheezing Gastrointestinal/Abdominal: Soft, No Tenderness Extremity: Normal ROM, No Deformity, No Swelling Neurological/Psych: Oriented x3 (awake and alert) ED Course And Treatment - Laboratory Results Result Diagrams: 02/09/17 00:29 02/09/17 00:29 ECG: Interpreted By Me, Viewed By Me ECG Rhythm: Sinus Rhythm (65), Nonspecific Changes O2 Sat by Pulse Oximetry: 100 Pulse Ox Interpretation: Normal - Radiology CXR: Interpreted by Me, Viewed By Me CXR Interpretation: Yes: Other (unchanged from 11/13/16). No: Infiltrates, Fracture, Pnemothorax Progress Note: Initial Impression: chest discomfort. Initial Plan: --EKG. -- Comp metabolic Panel. --Drug screen, urine. --Troponin I. --CBC w/ differential. --PTT. --PT. --Chest one view [RAD]. --Ecotrin 325 mg PO. -- HCG, Qualitative Urine. --Urinalysis Reevaluation Time: 02:24 Reassessment Condition: Improved Disposition Counseled Patient/Family Regarding: Studies Performed, Diagnosis, Need For Followup - Disposition Referrals: [facility] [Outside] [facility] [Outside] Disposition: HOME/ ROUTINE Disposition Time: 00:19 Condition: FAIR Additional Instructions: Please return if symptoms recur Prescriptions: Prednisone [Deltasone] 20 mg PO DAILY #5 tablet Instructions: Chest Pain (DC) Forms: [facility] (Welsh) - Clinical Impression Clinical Impression: Chest discomfort - Scribe Statement Hank Castañeda Provider Attestation: All medical record entries made by the Scribe were at my direction and personally dictated by me. I have reviewed the chart and agree that the record accurately reflects my personal performance of the history, physical exam, medical decision making, and the department course for this patient. I have also personally directed, reviewed, and agree with the discharge instructions and disposition.
[2017-02-09] MEDS ORDERED: Aspirin 325 mg EC Tablets PO STA (00:20)
[2017-02-09] MEDS ORDERED: Aspirin 325 mg EC Tablets PO ONE (00:29)
[2017-02-09 00:33] LABS: BASO # 0.1 K/uL (0.0-0.2); BASO % 1.1 % (0.0-2.0); EOS # 0.2 K/uL (0.0-0.7); EOS % 3.3 % (0.0-4.0); HEMATOCRIT 34.5 % (34.0-47.0); LYMPH # 2.3 K/uL (1.0-4.3); LYMPH % 36.6 % (20.0-40.0); MEAN CELL VOLUME 81.1 fL (81.0-99.0); MEAN CORPUSCULAR HEMOGLOBIN 27.2 pg (27.0-31.0); MEAN CORPUSCULAR HGB CONC 33.6 g/dL (33.0-37.0); MEAN PLATELET VOLUME 7.3 fL (7.2-11.7); MONO # 0.6 K/uL (0.0-0.8); NRBC % 0.1 % (0.0-2.0); RED CELL DISTRIBUTION WIDTH 13.9 % (11.5-14.5); WHITE BLOOD COUNT 6.3 K/uL (4.8-10.8)
[2017-02-09 00:41] LABS: INR 1.1
[2017-02-09 00:59] LABS: ALB/GLOB RATIO 1.1 (1.0-2.1); ALKALINE PHOSPHATASE 108 U/L (38-126); ALT/SGPT 34 U/L (9-52); AST/SGOT 21 U/L (14-36); BILIRUBIN,TOTAL 0.4 mg/dL (0.2-1.3); BLOOD UREA NITROGEN 16 mg/dL (7-17); CARBON DIOXIDE 28 mmol/L (22-30); CHLORIDE 99 mmol/L (98-107); GFR AFRICAN-AMERICAN > 60; GLUCOSE,RANDOM 94 mg/dL (65-105); POTASSIUM 3.9 mmol/L (3.6-5.2); SODIUM 137 mmol/L (132-148); TOTAL PROTEIN 8.1 g/dL (6.3-8.3)
[2017-02-09 01:55] LABS: RBC URINE 2 /hpf (0-3); URINE BILIRUBIN NEGATIVE (NEGATIVE); URINE BLOOD 2+ (NEGATIVE); URINE COLOR Straw (YELLOW); URINE GLUCOSE (UA) NORMAL (Normal); URINE KETONE NEGATIVE (NEGATIVE); URINE LEUKOCYTE ESTERASE 1+ Leu/uL (Negative); URINE PROTEIN NEGATIVE (NEGATIVE); URINE UROBILINOGEN NORMAL mg/dL (0.2-1.0); WBC URINE 9 /hpf (0-5)
[2017-02-09 02:43] VITALS: BP 119/69; PULSE 70; RESP 18; TEMP 97.8; O2SAT 96
--- NOTE | 2017-02-09 09:55 | RAD ---
PROCEDURE: CHEST RADIOGRAPH, 1 VIEW HISTORY: chest pain COMPARISON: 11/13/2016. FINDINGS: LUNGS: There is bibasilar atelectasis. No focal consolidation. PLEURA: No pneumothorax or pleural fluid seen. CARDIOVASCULAR: Normal. OSSEOUS STRUCTURES: No significant abnormalities. VISUALIZED UPPER ABDOMEN: Normal. OTHER FINDINGS: None. IMPRESSION: Bibasilar atelectasis. No lobar pneumonia.
--- NOTE | 2017-02-11 21:44 | CARD ---
APPROVED REPORT EKG Measurement Heart [id number] MD [id number] <Conclusion> Normal sinus rhythm Normal ECG
== END 2017-02-09 02:42 | disposition home or self-care (01) ==
LOC: C.ER 00:05 → SUPCPDRO 00:05 → C.ER 02:42
DX: R07.9 Chest pain, unspecified (principal); D64.9 Anemia, unspecified

== ENCOUNTER 2017-05-26 09:05 | Emergency (ER) | payer OTHER ==
[2017-05-26 09:17] VITALS: RESP 20; BMI 25.2
[2017-05-26 09:51] LABS: SQUAMOUS EPITHIAL 4 /hpf (0-5); URINE BACTERIA RARE (<OCC); URINE BILIRUBIN NEGATIVE (NEGATIVE); URINE BLOOD 2+ (NEGATIVE); URINE CLARITY Clear (Clear); URINE COLOR Straw (YELLOW); URINE GLUCOSE (UA) NORMAL (Normal); URINE LEUKOCYTE ESTERASE 1+ Leu/uL (Negative); URINE PROTEIN NEGATIVE (NEGATIVE); URINE UROBILINOGEN NORMAL mg/dL (0.2-1.0)
--- NOTE | 2017-05-26 10:52 | RAD ---
HISTORY: r/o infiltrate COMPARISON: 02/09/2017 TECHNIQUE: Chest PA and lateral FINDINGS: LUNGS: No active pulmonary disease. PLEURA: No significant pleural effusion identified. No pneumothorax apparent. CARDIOVASCULAR: Normal. OSSEOUS STRUCTURES: No significant abnormalities. VISUALIZED UPPER ABDOMEN: Normal. OTHER FINDINGS: None. IMPRESSION: No active disease.
[2017-05-26 11:06] VITALS: BP 125/80; PULSE 98; TEMP 98.9; O2SAT 98
--- NOTE | 2017-05-26 12:04 | CT ---
PROCEDURE: CT Abdomen and Pelvis without intravenous contrast HISTORY: left flank pain with hematuria COMPARISON: None. TECHNIQUE: Technique. Contrast Dose: Radiation dose: Total exam DLP = Total exam DLP = mGy-cm. This CT exam was performed using one or more of the following dose reduction techniques: Automated exposure control, adjustment of the mA and/or kV according to patient size, and/or use of iterative reconstruction technique. FINDINGS: LOWER THORAX: Unremarkable. LIVER: Fatty liver. GALLBLADDER AND BILE DUCTS: Unremarkable. PANCREAS: Unremarkable. No gross lesion or ductal dilatation. SPLEEN: Unremarkable. ADRENALS: Unremarkable. No mass. KIDNEYS AND URETERS: Unremarkable. No hydronephrosis. No solid mass. VASCULATURE: Unremarkable. No aortic aneurysm. BOWEL: Unremarkable. No obstruction. No gross mural thickening. APPENDIX: Unremarkable. Normal appendix. PERITONEUM: Unremarkable. No free fluid. No free air. LYMPH NODES: Unremarkable. No enlarged lymph nodes. BLADDER: Unremarkable. REPRODUCTIVE: Hysterectomy. BONES: Status post lumbar surgery. OTHER FINDINGS: None. IMPRESSION: No urinary tract calculus or hydronephrosis.
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
== END 2017-05-26 12:33 | disposition home or self-care (01) ==
LOC: C.ER 09:05
DX: N39.0 Urinary tract infection, site not specified (principal)

== ENCOUNTER 2018-03-28 17:36 | Observation (INO) | payer SELFPAY ==
[2018-03-28 17:36] VITALS: BMI 25.2
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
[2018-03-28 18:46] LABS: BASO # 0.1 K/uL (0.0-0.2); BASO % 1.2 % (0.0-2.0); EOS # 0.2 K/uL (0.0-0.7); EOS % 2.3 % (0.0-4.0); HEMOGLOBIN 11.9 g/dL (11.0-16.0); LYMPH # 2.4 K/uL (1.0-4.3); LYMPH % 32.8 % (20.0-40.0); MEAN CORPUSCULAR HEMOGLOBIN 26.8 pg (27.0-31.0); MEAN CORPUSCULAR HGB CONC 32.3 g/dL (33.0-37.0); MEAN PLATELET VOLUME 7.4 fL (7.2-11.7); MONO # 0.5 K/uL (0.0-0.8); MONO % 7.2 % (0.0-10.0); NEUT # 4.1 K/uL (1.8-7.0); NEUT % 56.5 % (50.0-75.0); RBC 4.43 Mil/uL (3.80-5.20); RED CELL DISTRIBUTION WIDTH 13.9 % (11.5-14.5); WHITE BLOOD COUNT 7.2 K/uL (4.8-10.8)
[2018-03-28 19:01] LABS: BLOOD UREA NITROGEN 18 mg/dL (7-17); CALCIUM 8.9 mg/dl (8.6-10.4); GFR NON-AFRICAN AMERICAN > 60
[2018-03-28 19:08] LABS: ALB/GLOB RATIO 1.2 (1.0-2.1); ALBUMIN 4.2 g/dL (3.5-5.0); ALT/SGPT 37 U/L (9-52); AST/SGOT 45 U/L (14-36)
[2018-03-28 19:14] LABS: CK-MB < 0.22 ng/mL (0.0-3.38)
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
[2018-03-28] MEDS ORDERED: Dexamethasone 4 mg/1 ml IVP STA (23:04)
[2018-03-29 01:31] LABS: CK-MB < 0.22 ng/mL (0.0-3.38)
[2018-03-29 07:45] VITALS: RESP 20; O2SAT 97
--- NOTE | 2018-03-29 08:55 | CP.PCM.PN ---
Subjective - Date & Time of Evaluation Date of Evaluation: 03/29/18 Time of Evaluation: 08:55 - Subjective Subjective: PGY-1 Medicine Progress Note for Dr. Morton Objective - Vital Signs/Intake and Output Vital Signs (last 24 hours): Temp Pulse Resp BP Pulse Ox 97.5 F L 70 20 113/73 97 03/29/18 07:05 03/29/18 07:05 03/29/18 07:05 03/29/18 07:05 03/29/18 07:05 - Medications Medications: Current Medications Aspirin (Aspirin Chewable) 81 mg PO DAILY MARC Enoxaparin Sodium (Lovenox) 40 mg SC DAILY MARC Pantoprazole Sodium (Protonix Ec Tab) 40 mg PO DAILY MARC - Labs Labs: 03/28/18 18:40 03/28/18 18:40
--- NOTE | 2018-03-29 10:11 | RAD ---
HISTORY: chest pain COMPARISON: Chest x-ray performed 05/26/17 TECHNIQUE: Chest, one view. FINDINGS: Examination limited by habitus and hypoinflation. LUNGS: No focal consolidation. Please note that chest x-ray has limited sensitivity for the detection of pulmonary masses. PLEURA: No significant pleural effusion identified. No definite pneumothorax . CARDIOVASCULAR: Heart size appears within normal limits. No significant atherosclerotic calcification present. OSSEOUS STRUCTURES: Degenerative changes. VISUALIZED UPPER ABDOMEN: Mild elevation of the right hemidiaphragm. OTHER FINDINGS: None. IMPRESSION: No focal consolidation. Hypoinflation.
[2018-03-29] MEDS: Pantoprazole 40 mg EC Tab PO SCH ×2 (11:05→12:17)
[2018-03-29] MEDS: Enoxaparin 40 mg Syringe SC SCH ×2 (11:05→12:17)
--- NOTE | 2018-03-29 12:00 | MRI ---
MRI cervical spine HISTORY: Cervical radiculopathy. Comparison: None available. Technique: Multi-echo multiplanar sequences were performed through the cervical spine without the use of intravenous contrast. Findings: Heterogeneity of the visualized marrow with patchy decreased T1 signal suggestive for hematopoietic marrow reconversion. Reversal of the normal cervical lordosis. Inferior endplate concavities at the C3, C4, and C5 vertebral bodies. Anterior osteophytosis at the C3-4, C4-5, and C5-6 levels. Signal abnormality within the spinal cord on the sagittal STIR sequences likely represents pulsation artifact. C2-3: No significant disc herniation, spinal canal stenosis, or neural foraminal narrowing. C3-4: Small broad-based posterior disc bulge contacting the anterior thecal sac. No significant spinal canal stenosis or neural foraminal narrowing. C4-5: Moderate-sized broad-based posterior disc bulge contacting the anterior thecal sac and anterior spinal cord. Mild spinal canal stenosis. Moderate right and mild left neural foraminal narrowing. C5-6: Small broad-based posterior disc bulge contacting the anterior thecal sac. No significant spinal canal stenosis. Mild bilateral neural foraminal narrowing. C6-7: No significant disc herniation, spinal canal stenosis, or neural foraminal narrowing. C7-T1: No significant disc herniation, spinal canal stenosis, or neural foraminal narrowing. Rounded focal area of increased T1 and T2 signal seen within the T3 vertebral body which partially suppresses on fat saturated sequences suggestive for a hemangioma versus focal fat versus additional etiology. Impression: Multilevel posterior disc bulges as described most pronounced at the C4-5 level.
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
[2018-03-29 16:30] VITALS: PULSE 75
[2018-03-29 16:36] VITALS: BP 105/68; TEMP 97.9
== END 2018-03-29 16:51 | disposition home or self-care (01) ==
LOC: C.ER 17:36 → C.5S 19:31
PROVIDERS: ADMIT Hospitalist; ATTEND Hospitalist
DX: R07.89 Other chest pain (principal); M54.2 Cervicalgia; M79.602 Pain in left arm; G89.29 Other chronic pain; M54.9 Dorsalgia, unspecified; Z87.828 Personal history of other (healed) physical injury and trauma; Z98.890 Other specified postprocedural states; Z88.8 Allergy status to other drugs, medicaments and biological substances; Z88.0 Allergy status to penicillin; Z88.1 Allergy status to other antibiotic agents; Z91.041 Radiographic dye allergy status
CPT/HCPCS: 36415; 71045; 72141; 80053; 80061; 82550; 82553; 83036; 84439; 84443; 84484; 85025; 97166; 97530; 99284; C9113; G0378; G8987; G8988; J1100; J1650

== ENCOUNTER 2018-05-04 15:52 | Outpatient (CLI) | payer OTHER | END 2018-05-04 15:53 | disposition home or self-care (01) | LOC: C.MAMMO 15:52 | DX: Z12.31 Encounter for screening mammogram for malignant neoplasm of breast (principal) ==

== ENCOUNTER 2018-06-04 10:20 | Outpatient (CLI) | payer OTHER | END 2018-06-04 10:21 | disposition home or self-care (01) | LOC: C.RADH 10:20 | DX: N39.46 Mixed incontinence (principal) ==

== ENCOUNTER 2018-06-12 19:06 | Emergency (ER) | payer OTHER ==
[2018-06-12 19:07] VITALS: BMI 25.2
[2018-06-12 19:45] LABS: HEMOGLOBIN 12.5 g/dL (11.0-16.0); MEAN CELL VOLUME 82.6 fL (81.0-99.0); MEAN CORPUSCULAR HEMOGLOBIN 27.1 pg (27.0-31.0); MEAN CORPUSCULAR HGB CONC 32.8 g/dL (33.0-37.0); MEAN PLATELET VOLUME 7.4 fL (7.2-11.7); RBC 4.6 Mil/uL (3.80-5.20); RED CELL DISTRIBUTION WIDTH 13.8 % (11.5-14.5); WHITE BLOOD COUNT 8.9 K/uL (4.8-10.8)
[2018-06-12] MEDS ORDERED: Sodium Chloride 0.9% 1,000 ML IV ONE (19:48)
--- NOTE | 2018-06-12 19:48 | C.PDOC ---
History Of Present Illness 43 year old female presents to the ED c/o lower abdominal pain and left flank pain for the past 5 days. Patient reports pain is associated with nausea. She states her PMD sent her for an ultrasound of the kidneys and abdomen, however she does not yet know the results. Patient denies fever/chills, vomiting, diarrhea, rashes, dysuria/hematuria. Time Seen by Provider: 06/12/18 19:23 Chief Complaint (Nursing): Abdominal Pain History Per: Patient History/Exam Limitations: no limitations Onset/Duration Of Symptoms: Days (5) Current Symptoms Are (Timing): Still Present Location Of Pain/Discomfort: RLQ, LLQ Radiation Of Pain To:: Flank Quality Of Discomfort: "Pain" Associated Symptoms: Nausea. denies: Vomiting, Diarrhea, Constipation, Urinary Symptoms Recent travel outside of the [place]: No Additional History Per: Patient Abnormal Vaginal Bleeding: No Last Menstral Period: 2 years ago Past Medical History Reviewed: Historical Data, Nursing Documentation, Vital Signs Vital Signs: Last Vital Signs Temp 97.8 F 06/12/18 19:15 Pulse 75 06/12/18 19:15 Resp 18 06/12/18 19:15 BP 126/78 06/12/18 19:15 Pulse Ox 97 06/12/18 19:15 - Medical History PMH: Anemia, Back Problems, Colonic Polyps, Gastritis Surgical History: Back Surgery, Endoscopy - [facility] Procedures D & C NEC (11/18/13) DESTRUCT PERITONEAL TISS (03/09/14) INTRANAS LES DESTRUCTION (11/03/14) LAPAROSCOP LYSIS-ADHES OVA,FALLOP TUBE (03/09/14) RESECTION OF BILATERAL FALLOPIAN TUBES, OPEN APPROACH (05/09/16) RESECTION OF CERVIX, OPEN APPROACH (05/09/16) RESECTION OF UTERUS, OPEN APPROACH (05/09/16) Family History: States: [place], Diabetes - Social History Hx Tobacco Use: No Hx Alcohol Use: Yes Hx Substance Use: No - Immunization History Hx Tetanus Toxoid Vaccination: No Hx Influenza Vaccination: Yes Hx Pneumococcal Vaccination: No Review Of Systems Constitutional: Negative for: Fever, Chills Eyes: Negative for: Vision Change Cardiovascular: Negative for: Chest Pain, Palpitations Respiratory: Negative for: Shortness of Breath Gastrointestinal: Positive for: Abdominal Pain. Negative for: Nausea, Vomiting Genitourinary: Negative for: Dysuria, Hematuria Musculoskeletal: Positive for: Back Pain Skin: Negative for: Rash Neurological: Negative for: Weakness, Numbness, Headache Physical Exam - Physical Exam Appears: Well, Non-toxic, No Acute Distress Skin: Normal Color, Warm, Dry Head: Normacephalic Eye(s): bilateral: Normal Inspection Oral Mucosa: Moist Neck: Supple Cardiovascular: Rhythm Regular Respiratory: Normal Breath Sounds, No Rales, No Rhonchi, No Wheezing Gastrointestinal/Abdominal: Bowel Sounds, Soft, Tenderness (epigastric, suprapubic, LLQ TTP), No Distention, No Guarding, No Rebound, Other ((-) McBurney's, (-) Hess's) Back: CVA Tenderness (left (mild)) Extremity: Normal ROM, No Tenderness, No Swelling Neurological/Psych: Oriented x3 Gait: Steady ED Course And Treatment - Laboratory Results Result Diagrams: 06/12/18 19:39 06/12/18 19:39 O2 Sat by Pulse Oximetry: 97 (ON RA) Pulse Ox Interpretation: Normal - CT Scan/US CT abd/pelvis Other Rad Studies (CT/US): Read By Radiologist, Radiology Report Reviewed CT/US Interpretation: EXAM: CT Abdomen and Pelvis without IV contrast. CLINICAL HISTORY: ALLERGIC TO IV DYE N/V/ LEFT SIDED PAIN, BACK PAIN AND SUPRAPUBIC PAIN X 5 DAYS. TECHNIQUE: Axial computed tomography images of the abdomen and pelvis without intravenous contrast. 0.00 mGy-cm. CONTRAST: Without. COMPARISON: None provided. FINDINGS: LUNG BASES: The lung bases appear clear. No pleural effusions are seen. LIVER: Unremarkable. GALLBLADDER AND BILE DUCTS: Gallbladder is decompressed. PANCREAS: Unremarkable. SPLEEN: Unremarkable. ADRENAL GLANDS: Unremarkable. KIDNEYS, URETERS, AND BLADDER: Bladder is decompressed. STOMACH AND BOWEL: Stomach is decompressed. No bowel obstruction. APPENDIX: Normal appendix. PERITONEUM: No free fluid. No free air. LYMPH NODES: No lymphadenopathy is evident. REPRODUCTIVE: Unremarkable as visualized. VASCULATURE: No evidence of abdominal aortic aneurysm. BONES: Mild multilevel degenerative spine changes. MISCELLANEOUS: The study is somewhat limited by the body habitus. The lack of oral and IV contrast further limits evaluation. No evidence for obstructive uropathy. There are changes of prior anterior and posterior fusion at L5-S1. IMPRESSION: 1. The study is somewhat limited by the body habitus. The lack of oral and IV contrast further limits evaluation. 2. Mild multilevel degenerative spine changes. 3. There are changes of prior anterior and posterior fusion at L5-S1. 4. Additional, incidental findings as described above. . Electronically signed on Jun 13, 2018 12:29:11 AM EDT by: Varghese Cruz M.D., Certified by [facility], [facility]. Progress Note: Blood work, UA, UPreg, CT abd/pelvis ordered and reviewed. Patient given IV NS bolus, IV pepcid. Reevaluation Time: 00:55 Reassessment Condition: Improved (On reassessment, patient is resting comfo rtably and states she feels better. On exam, abdomen is soft and nontender. Blood work unremarkable, UA shows mild UTI. Patient given Rx for Macrobid and instructed to follow up with PMD in 1-2 days. She understands she should return to ED if symptoms worsen.) Disposition Counseled Patient/Family Regarding: Studies Performed, Diagnosis, Need For Followup, Rx Given - Disposition Referrals: Walter Euceda MD [Medical Doctor] - Disposition: HOME/ ROUTINE Disposition Time: 00:55 Condition: STABLE Additional Instructions: FOLLOW UP WITH YOUR DOCTOR IN 1-2 DAYS USE ANTIBIOTIC UNTIL FINISHED RETURN TO EMERGENCY ROOM IF SYMPTOMS BECOME WORSE SEGUIR CON QUACH MDICO EN 1-2 LUNDY UTILIZAR ANTIBIOTICOS HASTA ACABADOS VUELVA A LA MATTHEW DE EMERGENCIA SI LOS SNTOMAS SE HACEN PEOR Prescriptions: Nitrofurantoin Macrocrystals [Macrobid] 1 cap PO BID #14 cap Instructions: Urinary Tract Infection, Adult (DC) Forms: Seeking Alpha (Maori) Print Language: BAHAMIAN - Clinical Impression Clinical Impression: Urinary tract infection, Abdominal pain - Scribe Statement The provider has reviewed the documentation as recorded by the Scribe Pawan Trivedi All medical record entries made by the Scribe were at my direction and personally dictated by me. I have reviewed the chart and agree that the record accurately reflects my personal performance of the history, physical exam, medical decision making, and the department course for this patient. I have also personally directed, reviewed, and agree with the discharge instructions and disposition.
[2018-06-12 20:02] LABS: HCG,QUALITATIVE URINE NEGATIVE (NEGATIVE)
[2018-06-12 20:03] LABS: ALB/GLOB RATIO 1.6 (1.0-2.1); ALBUMIN 5.1 g/dL (3.5-5.0); ALT/SGPT 28 U/L (9-52); AST/SGOT 28 U/L (14-36); BLOOD UREA NITROGEN 16 mg/dL (7-17); CALCIUM 9.8 mg/dl (8.6-10.4); GFR NON-AFRICAN AMERICAN > 60; LIPASE 92 U/L (23-300)
[2018-06-12 20:04] LABS: SQUAMOUS EPITHIAL 5 /hpf (0-5); URINE BACTERIA OCC (<OCC); URINE BILIRUBIN NEGATIVE (NEGATIVE); URINE BLOOD 2+ (NEGATIVE); URINE CLARITY Hazy (Clear); URINE COLOR Yellow (YELLOW); URINE GLUCOSE (UA) NORMAL (Normal); URINE LEUKOCYTE ESTERASE 2+ Leu/uL (Negative); URINE PROTEIN NEGATIVE (NEGATIVE); URINE UROBILINOGEN NORMAL mg/dL (0.2-1.0)
[2018-06-12] MEDS ORDERED: Sodium Chloride 0.9% 1,000 ML ONE (20:05)
[2018-06-12 22:36] VITALS: TEMP 98.3
[2018-06-13 01:16] VITALS: BP 124/81; PULSE 75; RESP 16
--- NOTE | 2018-06-13 16:26 | CT ---
Date of service: 06/12/2018 PROCEDURE: CT Abdomen and Pelvis without intravenous contrast HISTORY: suprapubic, left flank pain r/o stone COMPARISON: 05/26/2017 TECHNIQUE: Without contrast.. Contrast dose: 0 Radiation dose: Total exam DLP = 520.16 mGy-cm. This CT exam was performed using one or more of the following dose reduction techniques: Automated exposure control, adjustment of the mA and/or kV according to patient size, and/or use of iterative reconstruction technique. FINDINGS: LOWER THORAX: Unremarkable. LIVER: Unremarkable. No gross lesion or ductal dilatation. GALLBLADDER AND BILE DUCTS: Unremarkable. PANCREAS: Unremarkable. No gross lesion or ductal dilatation. SPLEEN: Unremarkable. ADRENALS: Unremarkable. No mass. KIDNEYS AND URETERS: Unremarkable. No hydronephrosis. No solid mass. VASCULATURE: Unremarkable. No aortic aneurysm. No aortic atherosclerotic calcification or mural plaque present. BOWEL: Unremarkable. No obstruction. No gross mural thickening. APPENDIX: Unremarkable. Normal appendix. PERITONEUM: Unremarkable. No free fluid. No free air. LYMPH NODES: Unremarkable. No enlarged lymph nodes. BLADDER: Nondistended REPRODUCTIVE: Unremarkable prostate BONES: Orthopedic fixation at the L5-S1 level. No acute fracture. OTHER FINDINGS: None. IMPRESSION: No acute abnormality. No evidence of urinary calculus or urinary tract obstruction. The preliminary findings for this examination were reported by [facility] at 12:29 a.m. on 06/13/2018. There is concurrence of this report with the preliminary findings.
[2018-06-15 12:48] VITALS: O2SAT 97
== END 2018-06-13 01:16 | disposition home or self-care (01) ==
LOC: C.ER 19:06
DX: N39.0 Urinary tract infection, site not specified (principal); R10.30 Lower abdominal pain, unspecified
CPT/HCPCS: 74176; 80053; 81001; 83690; 84703; 85027; 87086; 96361; 96374; 99285; J7030

== ENCOUNTER 2018-06-28 07:32 | Day surgery (SDC) | payer OTHER ==
[2018-06-24 08:39] VITALS: BMI 26.7
[2018-06-28] MEDS ORDERED: DiphenhydrAMINE 50 mg/ml Inj ONE (08:11)
[2018-06-28] MEDS ORDERED: Propofol 10 mg/ml Inj (20 ML) ONE (08:15)
[2018-06-28] MEDS ORDERED: Midazolam 2 MG/2 ML VIAL ONE (08:15)
[2018-06-28] MEDS ORDERED: Sodium Chloride 0.9% 40 ML IV ONE (08:17)
[2018-06-28] MEDS ORDERED: Lidocaine/Epinephrine 1% 1:100000 10 ML IJ ONE (08:17)
[2018-06-28] MEDS ORDERED: Bupivacaine Liposomal Inj 20 ml INJ ONE (08:17)
[2018-06-28] MEDS ORDERED: ceFAZolin 1 gm in NS 0 GM/0 ML BAG IVPB ONE (08:17)
[2018-06-28] MEDS ORDERED: Bupivacaine 0.25% 20 ML INJ IJ ONE (08:17)
[2018-06-28] MEDS ORDERED: Clindamycin 600mg/50ml NS 600 MG/50 ML BAG IVPB ONE (08:43)
[2018-06-28] MEDS ORDERED: Neostigmine 1:1000 (1 mg/ml) Inj ONE (09:26)
--- NOTE | 2018-06-28 09:41 | PCM.SURG1 ---
Surgeon's Initial Post Op Note - Surgeon's Notes Surgeon: Dr. Ja Castaneda Packing Machine Pilot Can Router: Linda Bain, PGY-2; Judith HIGGINBOTHAM Type of Anesthesia: General Endo Anesthesia Administered By: BETHANY Haque Pre-Operative Diagnosis: Cholelithiasis, cholecystitis Operative Findings: Cholecystitis, cholelithiasis Post-Operative Diagnosis: Cholelithiasis, cholecystitis Operation Performed: Robotic cholecystectomy with TEP block Specimen/Specimens Removed: Gallbladder Estimated Blood Loss: EBL {In ML}: 1 Blood Products Given: N/A Drains Used: No Drains Post-Op Condition: Good Date of Surgery/Procedure: 06/28/18 Time of Surgery/Procedure: 09:50
--- NOTE | 2018-06-28 09:49 | CP.SDSHP ---
Same Day Surgery H & P - History Proposed Procedure: Robotic cholecystectomy Pre-Op Diagnosis: Cholelithiasis, cholecystitis - Previous Medical/Surgical History Pain: 0. No Pain Previous Surgical History: hysterectomy - Allergies Allergies: Allergies clarithromycin Allergy (Severe, Verified 06/12/18 19:21) SHORTNESS OF BREATH SOB with throat closing up, rash iodine Allergy (Severe, Verified 06/12/18 19:21) SHORTNESS OF BREATH Throat closing with rash morphine Allergy (Severe, Verified 06/12/18 19:21) SHORTNESS OF BREATH Throat closing with rash oxycodone HCl [From Percocet] Allergy (Severe, Verified 06/12/18 19:21) RASH Throat closing, SOB Penicillins Allergy (Severe, Verified 06/12/18 19:21) RASH Throat closing, SOB acetaminophen [From Percocet] Allergy (Verified 06/12/18 19:21) SHORTNESS OF BREATH iron Allergy (Verified 06/12/18 19:21) RASH latex Allergy (Verified 06/12/18 19:21) RASH oxycodone [From Percocet] Allergy (Verified 06/12/18 19:21) SHORTNESS OF BREATH all antibiotics Allergy (Uncoded 06/12/18 19:21) SHORTNESS OF BREATH Rash, throat closing. - Physical Exam General Appearance: NAD Vital Signs: Vital Signs 06/28/18 07:43 Temperature 98.2 F Pulse Rate 64 Respiratory 20 Rate Blood Pressure 148/79 O2 Sat by Pulse 100 Oximetry Mental Status: Alert & Oriented x3 Neuro: WNL Heart: WNL Lungs: WNL GI: Other (Mild pain in RUQ) - Impression Impression: Stable for robotic cholecystectomy Pt. Evaluated Today:Candidate for Anesthesia & Procedure: Yes - Date & Time Date: 06/28/18 Time: 07:30 Short Stay Discharge - Short Stay Discharge Admitting Diagnosis/Reason for Visit: CHOLECYSTITIS, CHOLELITHIASIS Disposition: HOME/ ROUTINE Referrals: Ja Castaneda MD [Staff Provider] - Instructions: Cholecystectomy (DC) Additional Instructions (Diet, Activity): Ok to resume normal diet NO heavy lifting for 4-6 weeks You have special tape over your incisions, do not pick it off, it will fall off on it's own OK to shower in 2 days. Do not sit in water
[2018-06-28] MEDS ORDERED: Acetaminophen IV 1,000 MG in Premixed IV 1 EA IV ONE (09:53)
[2018-06-28] MEDS: HYDROmorphone 0.5 mg/0.5 ml ISec IVP PRN ×4 (10:10→11:25)
[2018-06-28] MEDS ORDERED: Lactated Ringer's 1,000 ML IV ONE (12:00)
[2018-06-28 12:39] VITALS: RESP 18
[2018-06-28 14:37] VITALS: BP 147/65; PULSE 78; TEMP 97.6; O2SAT 100
--- NOTE | 2018-06-29 00:05 | OP ---
PROCEDURE DATE: 06/28/2018 PREOPERATIVE DIAGNOSIS: Chronic cholecystitis and cholelithiasis. POSTOPERATIVE DIAGNOSIS: Chronic cholecystitis and cholelithiasis. PROCEDURES DONE: 1. Robotic cholecystectomy. 2. Laparoscopic transversus abdominis plane block placement. SURGEON: Ja Castaneda MD SLAB INSPECTOR: BOB Wilson and Linda Bain, PGY-2 resident. TYPE OF ANESTHESIA: General endotracheal tube anesthesia. ESTIMATED BLOOD LOSS: Around 10 mL. DRAINS: None. PATHOLOGY: Gallbladder was sent for the pathology. COMPLICATIONS: None. INTRAOPERATIVE FINDINGS: The patient had changes of acute on chronic cholecystitis and cholelithiasis. DESCRIPTION OF PROCEDURE: On intraoperative steps, this 43-year-old female was diagnosed with chronic cholecystitis, and the patient had severe pain since last two weeks, and the patient was consented for the robotic cholecystectomy and possible open, brought to the OR, placed supine on the operating table. After induction of the anesthesia, the abdomen was prepped and draped in the usual sterile fashion. Supraumbilical transverse incision was made using open technique. Peritoneal cavity was entered. Pneumo was created. Another 3-8 mm port was placed in upper abdomen. Robot was brought in. Camera arm as well as arm 1 and arm 2 were docked. Gallbladder was retracted cranially. Calot's triangle dissection was done. Cystic duct and cystic artery were identified and clipped at three places and cut in between two clips nearby gallbladder, and then intraoperative firefly was used. The third operation is a robotic indocyanine green fluoroscopy. The cystic duct and cystic artery were identified using the ICG and the firefly, and after that a top-down approach was done. The critical view of the safety was identified, and after that, the cystic duct and cystic artery were clipped at three places and cut in between two clips nearby gallbladder. The gallbladder was dissected free from the gallbladder fossa, taken in EndoCatch bag, taken out through the umbilical port site, and sent off the table for pathology. There was proper hemostasis in each and every part of the procedure and now laparoscopic bilateral TAP block was given. The 30:30 mL of Exparel with saline was injected into the transverse abdominal muscles plain area and after proper TAP block bilaterally, all the instruments were taken out. The robot was undocked, all the ports were taken out under vision. Pneumo was deflated. The umbilical port site was closed in two layers. The fascia with 0 Vicryl interrupted sutures, skin with 4-0 Monocryl and dry sterile dressing was applied. The patient tolerated the procedure well. Count of instrument and gauze was correct. There were no apparent complications. The patient was extubated in OR and sent to the postanesthesia care unit in stable condition. Ja Castaneda MD
== END 2018-06-28 14:15 | disposition home or self-care (01) ==
LOC: C.SDS 07:32
PROVIDERS: ATTEND Surgery Surgical Critical Care
DX: K80.12 Calculus of gallbladder with acute and chronic cholecystitis without obstruction (principal)
CPT/HCPCS: 47562; 64488; 88304; J1170; J1885; J2250; J2405; J2704; J2710; J3010; J7120; S2900